=== PATIENT | male | born 1930 | race Caucasian/White ===

== ENCOUNTER 2018-10-02 07:12 | Emergency (ER) | payer OTHER ==
[2018-10-02] MEDS ORDERED: NA CHLORIDE 0.9% 250 ML ONE (07:50)
[2018-10-02] MEDS ORDERED: MECLIZINE HCL 12.5 MG TAB ONE (07:50)
[2018-10-02 08:03] LABS: Absolute Lymphocytes (CBC) 1.3 K/uL (0.7-4.9); Absolute Monocytes 0.5 K/uL (0.1-1.3); Absolute Neutrophil 5.3 K/uL (1.8-8.0); Basophils % 0.7 % (0-1.3); Eosinophils % 1.2 % (0-4.4); Hematocrit 38.6 % (39.6-49.0); Lymphocytes % 17.7 % (15.3-44.8); MCH 32.6 pg (27.0-35.0); MCV 96.3 fL (80-100); MPV 9.5 fL (7.6-11.3); Monocytes % 7.3 % (3.3-12.3); RBC Red Blood Cell Count 4.01 M/uL (4.33-5.43)
[2018-10-02 08:10] LABS: Protime INR 1.27
--- NOTE | 2018-10-02 08:20 | RAD REPORT ---
EXAM DESCRIPTION: CT - Head Brain Wo Cont - 10/02/2018 7:56 am CLINICAL HISTORY: Weakness, dizziness, syncope COMPARISON: None. TECHNIQUE: Axial 5 mm thick images of the head were obtained without IV contrast. All CT scans are performed using dose optimization technique as appropriate and may include automated exposure control or mA/KV adjustment according to patient size. FINDINGS: No intracranial hemorrhage, mass, edema or shift of mid-line structures. No acute infarcti on changes seen. Atrophy and chronic ischemic changes are present. Ventricles are in proportion to vo lume loss. Physiologic and arterial calcifications are present. Mastoid air cells and visualized portions of the paranasal sinuses are clear. No acute bony findings. IMPRESSION: Atrophy and chronic ischemic changes are present with no acute intracranial finding seen .
[2018-10-02 08:29] LABS: Albumin 3.8 g/dL (3.4-5.0); Bilirubin Direct 0.4 mg/dL (0-0.2); Bilirubin Total 1.1 mg/dL (0.2-1.0); Magnesium 2.4 mg/dL (1.8-2.4); Potassium 4.1 mmol/L (3.5-5.1); Protein, Total 7.5 g/dL (6.4-8.2); Troponin (Emerg Dept Use Only) 0.02 ng/mL (0.0-0.045)
--- NOTE | 2018-10-02 08:51 | RAD REPORT ---
EXAM DESCRIPTION: RAD - Chest Single View - 10/02/2018 8:14 am CLINICAL HISTORY: Shortness of breath, dyspnea COMPARISON: November 2017 TECHNIQUE: AP portable chest image was obtained 0759 hours . FINDINGS: Pacemaker is in place. Cardiomegaly is present increased slightly over comparison. Central vasculature is not substantially different from the prior study. Patient has extensive chronic inter stitial lung disease. This is most pronounced in each base. No substantial interval change. Early int erstitial edema or infiltrate could be masked. Sternotomy wires are in place. No pneumothorax or larg e pleural effusion. No acute bony abnormality seen. No acute aortic findings suspected. IMPRESSION: Mild CHF/volume overload pattern. Extensive chronic interstitial lung disease present. This can mask severity of interstitial edema or infiltrate.
[2018-10-02 09:35] LABS: Urine Blood 1+ (NEG); Urine Glucose NEGATIVE (NEG); Urine Protein NEGATIVE (NEG); Urine pH 5.5 (5.0-7.0)
[2018-10-02] MEDS ORDERED: ONDANSETRON 4 MG/2 ML VIAL ONE (09:44)
--- NOTE | 2018-10-02 10:19 | EDPHYS ---
Physician Documentation [facility] Name: Masood Liu Age: 88 yrs Sex: Male : 1930 Arrival Date: 10/02/2018 Time: 07:13 Bed 5 Private MD: out of town, doctor ED Physician Thanh Rodrigues HPI: 10/02 07:39 This 88 yrs old Male presents to ER via Ambulatory with complaints of rn Dizziness, Shortness Of Breath. 07:39 The patient presents with feeling faint, generalized weakness, lightheadedness, feeling rn off balance. Onset: The symptoms/episode began/occurred this morning. Modifying factors: The symptoms are alleviated by nothing, the symptoms are aggravated by changing position. Severity of symptoms: At their worst the symptoms were moderate in the emergency department the symptoms have improved. The patient has not experienced similar symptoms in the past. Reports dizziness, felt like spinning, sick to his stomach, when getting up to use urinal. Happened 3 times this morning, last known normal last night, improved now, worse with change in position. No chest pain/vomiting/diarrhea. Went to bed fine last night. No palpitations. . Historical: - Allergies: 07:24 Aldactone; hj 07:24 Allopurinol; hj 07:24 Keflex; hj 07:24 Lovenox; hj - Home Meds: 07:24 furosemide 20 mg Oral tab 0.5 tab once daily [Active]; gabapentin 300 mg Oral cap 1 cap hj twice a day [Active]; isosorbide mononitrate 30 mg Oral Tb24 1 tab once daily [Active]; nitroglycerin 0.4 mg SL subl 1 tab as needed [Active]; omeprazole 20 mg Oral cpDR 1 cap once daily [Active]; Plavix 75 mg Oral tab 1 tab once daily [Active]; sacubitril-valsartan 24 mg / 26 mg Oral 1 tab 2 times per day [Active]; sotalol 120 mg Oral tab 0.5 tab daily [Active]; terazosin 2 mg Oral cap 1 cap nightly [Active]; - PMHx: 07:24 Atrial Fib; BPH; CAD; CHF; GERD; Hypertension; neuropathy; hj - PSHx: 07:24 pacemaker; Heart Surgery; hj - Immunization history:: Adult Immunizations not up to date. - Social history:: Smoking status: Patient/guardian denies using tobacco, Patient/guardian denies using alcohol. - Ebola Screening: : Patient negative for fever greater than or equal to 101.5 degrees Fahrenheit, and additional compatible Ebola Virus Disease symptoms Patient denies exposure to infectious person Patient denies travel to an Ebola-affected area in the 21 days before illness onset. - Family history:: not pertinent. - Hospitalizations: : No recent hospitalization is reported. ROS: 07:39 Constitutional: Negative for fever, chills, and weight loss, Eyes: Negative for injury, rn pain, redness, and discharge, Neck: Negative for injury, pain, and swelling, Cardiovascular: Negative for chest pain, palpitations, and edema, Respiratory: Negative for wheezing, and pleuritic chest pain, Abdomen/GI: Negative for abdominal pain, nausea, vomiting, diarrhea, and constipation, MS/Extremity: Negative for injury and deformity, Skin: Negative for injury, rash, and discoloration, Neuro: Negative for headache, numbness, tingling, and seizure. Exam: 07:39 Constitutional: This is a well developed, well nourished patient who is awake, alert, rn and in no acute distress. Head/Face: Normocephalic, atraumatic. Eyes: Pupils equal round and reactive to light, extra-ocular motions intact. Neck: Trachea midline. No Meningismus. + mild JVD Cardiovascular: Irregular rhythm, normal rate, no murmur Respiratory: Lungs have equal breath sounds bilaterally, No increased work of breathing, no retractions. + speaking full sentences Abdomen/GI: soft, non-tender MS/ Extremity: Pulses equal, no cyanosis. Neurovascular intact. Full, normal range of motion. Equal circumference. Neuro: Awake and alert, GCS 15, oriented to person, place, time, and situation. Cranial nerves II-XII grossly intact. Motor strength 5/5 in all extremities. Sensory grossly intact. Cerebellar exam normal. Slow gait from wheelchair to bed, required some assistance. Vital Signs: 07:25 BP 108 / 68; Pulse 60; Resp 18; Temp 97.6(TE); Pulse Ox 97% on R/A; Weight 92.99 kg; hj Height 5 ft. 8 in. (172.72 cm); Pain 0/10; 08:03 BP 110 / 68; Pulse 60; Resp 18; Pulse Ox 100% ; bp 08:54 BP 106 / 76; Pulse 60; Resp 18; Pulse Ox 98% on R/A; jb1 10:04 BP 104 / 64; Pulse 60; Resp 18; Temp 97.6; Pulse Ox 96% on R/A; Pain 0/10; ch 07:25 Body Mass Index 31.17 (92.99 kg, 172.72 cm) hj MDM: 07:27 Patient medically screened. rn 10:16 Differential diagnosis: cardiac arrhythmia, CVA, generalized weakness, hypovolemia, rn idiopathic dizziness, near-syncope, TIA, vertigo. Data reviewed: vital signs, nurses notes, lab test result(s), EKG, radiologic studies, CT scan, plain films, and as a result, I will discharge patient. Counseling: I had a detailed discussion with the patient and/or guardian regarding: the historical points, exam findings, and any diagnostic results supporting the discharge/admit diagnosis, lab results, radiology results, the need for outpatient follow up, to return to the emergency department if symptoms worsen or persist or if there are any questions or concerns that arise at home. Response to treatment: the patient's symptoms have markedly improved after treatment, the patient is now symptom free, and as a result, I will discharge patient. Special discussion: I discussed with the patient/guardian in detail that at this point there is no indication for admission to the hospital. It is understood, however, that if the symptoms persist or worsen the patient needs to return immediately for re-evaluation. Based on the history and exam findings, there is no indication for further emergent testing or inpatient evaluation. I discussed with the patient/guardian the need to see the neurologist for further evaluation of the symptoms. ED course: Pt feels much better after meclizine and zofran. Offered observation vs dc home, given most likely diagnosis given intermittent dizziness and nausea would be vertigo. Patient would like to go home. No other acute findings on w/u except for mild dehydration due to diuretics and water restriction. No other focal neurological findings and negative ct head. . ED course: No evidence of pacemaker malfunction.. 10/02 07:39 Order name: Hepatic Function rn 10/02 07:39 Order name: Basic Metabolic Panel; Complete Time: 08:51 rn 10/02 07:39 Order name: CBC with Diff; Complete Time: 08:51 rn 10/02 07:39 Order name: Lipase; Complete Time: 08:51 rn 10/02 07:39 Order name: Magnesium; Complete Time: 08:51 rn 10/02 07:39 Order name: Protime (+inr); Complete Time: 08:51 rn 10/02 07:39 Order name: CT Head Brain wo Cont; Complete Time: 08:51 rn 10/02 07:39 Order name: Ptt, Activated; Complete Time: 08:51 rn 10/02 07:39 Order name: Troponin (emerg Dept Use Only); Complete Time: 08:51 rn 10/02 07:39 Order name: XRAY Chest (1 view); Complete Time: 08:52 rn 10/02 07:39 Order name: Liver (Hepatic) Function; Complete Time: 08:51 EDMS 10/02 09:09 Order name: Urine Dipstick--Ancillary (enter results); Complete Time: 10:20 bd 10/02 07:39 Order name: EKG; Complete Time: 07:40 rn 10/02 07:39 Order name: Cardiac monitoring; Complete Time: 07:40 rn 10/02 07:39 Order name: EKG - Nurse/Tech; Complete Time: 07:46 rn 10/02 07:39 Order name: IV Saline Lock; Complete Time: 07:46 rn 10/02 07:39 Order name: Labs collected and sent; Complete Time: 07:46 rn 10/02 07:39 Order name: O2 Per Protocol; Complete Time: 07:41 rn 10/02 07:39 Order name: O2 Sat Monitoring; Complete Time: 07:41 rn 10/02 07:39 Order name: Urine Dipstick-Ancillary (obtain specimen); Complete Time: 09:03 rn Administered Medications: 07:50 Drug: Meclizine 50 mg Route: PO; bp 08:30 Follow up: Response: Marked relief of symptoms bp 09:00 Follow up: Response: No adverse reaction ch 07:50 Drug: NS 0.9% 250 ml Route: IV; Rate: 1 bolus; Site: right forearm; bp 09:00 Follow up: IV Status: Completed infusion; IV Intake: 250ml ch 09:30 Drug: Zofran 4 mg Route: IVP; Site: right forearm; ch 10:05 Follow up: Response: No adverse reaction; Marked relief of symptoms ch Disposition: 10/02/18 10:18 Discharged to Home. Impression: Vertigo, Dehydration. - Condition is Stable. - Discharge Instructions: Dehydration, Adult, Vertigo. - Prescriptions for Zofran ODT 4 mg Oral tablet,disintegrating - place 1 tablet by TRANSLINGUAL route every 8 hours As needed; 20 tablet. Meclizine 25 mg Oral Tablet - take 1 tablet by ORAL route every 8 hours As needed; 30 tablet. Plavix 75 mg Oral Tablet - take 1 tablet by ORAL route once daily; 7 tablet. - Medication Reconciliation Form, Thank You Letter, Antibiotic Education, Prescription Opioid Use form. - Follow up: Samuel Van MD; When: 2 - 3 days; Reason: Recheck today's complaints, Re-evaluation by your physician. - Problem is new. - Symptoms have improved. Signatures: Dispatcher [employer] EDKristin Martin RN RN Thanh Rodrigues MD MD rn Joaquin, Henry, RN RN Sean Washburn RN RN bp Corrections: (The following items were deleted from the chart) 10:25 10:18 10/02/2018 10:18 Discharged to Home. Impression: Vertigo; Dehydration. Condition ch is Stable. Forms are Medication Reconciliation Form, Thank You Letter, Antibiotic Education, Prescription Opioid Use. Follow up: Samuel Van; When: 2 - 3 days; Reason: Recheck today's complaints, Re-evaluation by your physician. Problem is new. Symptoms have improved. rn
--- NOTE | 2018-10-02 10:19 | ER ---
Nurse's Notes [facility] Name: Masood Liu Age: 88 yrs Sex: Male : 1930 Arrival Date: 10/02/2018 Time: 07:13 Bed 5 Private MD: out of town, doctor Diagnosis: Vertigo;Dehydration Presentation: 10/02 07:20 Presenting complaint: Patient states: i started feeling dizzy today when i got up to hj urinate, if i hadnt had enough support in the wall i coud have fallen, i felt short of breath too; denies fever and chills; reports night sweats and nausea; denies chest pain; on pacemaker;. Transition of care: patient was not received from another setting of care. Onset of symptoms was October 02, 2018. Risk Assessment: Do you want to hurt yourself or someone else? Patient reports no desire to harm self or others. Initial Sepsis Screen: Does the patient meet any 2 criteria? No. Patient's initial sepsis screen is negative. Does the patient have a suspected source of infection? No. Patient's initial sepsis screen is negative. Care prior to arrival: None. 07:20 Method Of Arrival: Ambulatory 07:20 Acuity: SHELLEY 3 hj Triage Assessment: 07:25 General: Appears in no apparent distress. uncomfortable, Behavior is calm, cooperative, hj appropriate for age. Respiratory: Reports shortness of breath Onset: The symptoms/episode began/occurred today, the patient has mild shortness of breath. Historical: - Allergies: 07:24 Aldactone; hj 07:24 Allopurinol; 07:24 Keflex; 07:24 Lovenox; hj - Home Meds: 07:24 furosemide 20 mg Oral tab 0.5 tab once daily [Active]; gabapentin 300 mg Oral cap 1 cap hj twice a day [Active]; isosorbide mononitrate 30 mg Oral Tb24 1 tab once daily [Active]; nitroglycerin 0.4 mg SL subl 1 tab as needed [Active]; omeprazole 20 mg Oral cpDR 1 cap once daily [Active]; Plavix 75 mg Oral tab 1 tab once daily [Active]; sacubitril-valsartan 24 mg / 26 mg Oral 1 tab 2 times per day [Active]; sotalol 120 mg Oral tab 0.5 tab daily [Active]; terazosin 2 mg Oral cap 1 cap nightly [Active]; - PMHx: 07:24 Atrial Fib; BPH; CAD; CHF; GERD; Hypertension; neuropathy; hj - PSHx: 07:24 pacemaker; Heart Surgery; hj - Immunization history:: Adult Immunizations not up to date. - Social history:: Smoking status: Patient/guardian denies using tobacco, Patient/guardian denies using alcohol. - Ebola Screening: : Patient negative for fever greater than or equal to 101.5 degrees Fahrenheit, and additional compatible Ebola Virus Disease symptoms Patient denies exposure to infectious person Patient denies travel to an Ebola-affected area in the 21 days before illness onset. - Family history:: not pertinent. - Hospitalizations: : No recent hospitalization is reported. Screenin:24 Abuse screen: Denies threats or abuse. Denies injuries from another. Nutritional hj screening: No deficits noted. Tuberculosis screening: No symptoms or risk factors identified. Fall Risk Fall in past 12 months (25 points). Assessment: 07:24 Pain: Denies pain. Cardiovascular: Rhythm is. Respiratory: Airway is patent Respiratory hj effort is even, unlabored, Respiratory pattern is regular, symmetrical, 07:52 Reassessment: PT TO CT WITH VENDING MACHINE HOST/HOSTESS. bp 08:03 Reassessment: PT RETURNED FROM CT. bp 09:04 Reassessment: ALL CURRENT ORDERS COMPLETED, DISPO PENDING, NO ACUTE S/S AT THIS TIME. ch 10:04 Reassessment: Patient appears in no apparent distress at this time. Patient and/or ch family updated on plan of care and expected duration. Pain level reassessed. Patient is alert, oriented x 3, equal unlabored respirations, skin warm/dry/pink. pt states he feels much better after the nausea medications. erp notified pt feels better. Patient states feeling better. Patient states symptoms have improved. Vital Signs: 07:25 BP 108 / 68; Pulse 60; Resp 18; Temp 97.6(TE); Pulse Ox 97% on R/A; Weight 92.99 kg; hj Height 5 ft. 8 in. (172.72 cm); Pain 0/10; 08:03 BP 110 / 68; Pulse 60; Resp 18; Pulse Ox 100% ; bp 08:54 BP 106 / 76; Pulse 60; Resp 18; Pulse Ox 98% on R/A; jb1 10:04 BP 104 / 64; Pulse 60; Resp 18; Temp 97.6; Pulse Ox 96% on R/A; Pain 0/10; ch 07:25 Body Mass Index 31.17 (92.99 kg, 172.72 cm) hj ED Course: 07:13 Patient arrived in ED. mr 07:14 out of town, doctor is Private Physician. mr 07:21 Thanh Rodrigues MD is Attending Physician. rn 07:22 Triage completed. hj 07:25 Arm band placed on left wrist. hj 07:25 Patient has correct armband on for positive identification. Placed in gown. Bed in low hj position. Call light in reach. Side rails up X 1. Adult w/ patient. 07:39 Sean Washburn, NORA is Primary Nurse. bp 07:47 N-Terminal Pro-brain Natriuretic Peptide Sent. ch 07:49 EKG done, by information technology analyst. reviewed by Thanh Rodrigues MD. at1 07:50 Inserted saline lock: 20 gauge in right forearm, using aseptic technique. bp 07:54 CT completed. Patient tolerated procedure well. Patient moved to CT via stretcher. Patient moved back from CT. 07:55 CT Head Brain wo Cont In Process Unspecified. EDMS 08:11 XRAY Chest (1 view) In Process Unspecified. EDMS 08:11 X-ray completed. Portable x-ray completed in exam room. jr1 08:59 cafeteria monitor on. Pulse ox on. NIBP on. Warm blanket given. Pillow given. ch 08:59 Urine collected: clean catch specimen, clear. ch 09:03 Hepatic Function Sent. ch 10:18 Samuel Van MD is Referral Physician. rn 10:24 No provider procedures requiring assistance completed. IV discontinued, intact, ch bleeding controlled, No redness/swelling at site. Pressure dressing applied. Administered Medications: 07:50 Drug: Meclizine 50 mg Route: PO; bp 08:30 Follow up: Response: Marked relief of symptoms bp 09:00 Follow up: Response: No adverse reaction ch 07:50 Drug: NS 0.9% 250 ml Route: IV; Rate: 1 bolus; Site: right forearm; bp 09:00 Follow up: IV Status: Completed infusion; IV Intake: 250ml ch 09:30 Drug: Zofran 4 mg Route: IVP; Site: right forearm; 10:05 Follow up: Response: No adverse reaction; Marked relief of symptoms ch Intake: 09:00 IV: 250ml; Total: 250ml. Outcome: 10:18 Discharge ordered by . rn 10:24 Discharged to home via wheelchair, with family. 10:24 Condition: improved 10:24 Discharge instructions given to patient, family, Instructed on discharge instructions, follow up and referral plans. medication usage, Demonstrated understanding of instructions, follow-up care, medications, Prescriptions given X 3. 10:25 Patient left the ED. Signatures: Dispatcher [employer] EDMS Emmanuel Mccoy jb1 Kristin Godfrey, RN RN petra Boggs, Zaria mr Shields, Shanika Mills jr1 Thanh Rodrigues MD MD rn Gonzales, Amanda, trimming inspector EKG Tat1 Christopher Villegas RN RN hj Peltier, Brian RN RN bp Corrections: (The following items were deleted from the chart) 07:27 07:20 Presenting complaint: Patient states: i started feeling dizzy today when i got up hj to urinate, if i hadnt had enough support in the wall i coud have fallen, i felt short of breath too; denies fever and chills; reports night sweats and nausea; 07:27 07:25 Pulse 60bpm; Resp 18bpm; Pulse Ox 97% RA; Temp 97.6F Temporal; 92.99 kg; Height 5 hj ft. 8 in.; BMI: 31.1; Pain 0/10; hj
[2018-10-02 10:38] VITALS: TEMP 97.6
[2018-10-02 10:43] VITALS: BP 104/64; O2SAT 96
--- NOTE | 2018-10-02 12:19 | EKG ---
Test Date: 2018-10-02 Test Time: 07:43:23 [employer]: SORAYA MEASUREMENT RESULTS: Intervals: Rate: 60 UT: 186 QRSD: 174 QT: 614 QTc: 614 [place]: P: 141 UT: 186 QRS: -68 T: 76 INTERPRETIVE STATEMENTS: AV dual-paced rhythm Abnormal ECG Compared to ECG 12/16/2017 13:14:13 No significant changes Electronically Signed On 10-02-18 12:17:51 SHOE FITTER by Dean Ferreira
== END 2018-10-02 10:25 | disposition home or self-care (01) ==
LOC: ER 07:12
DX: R42 Dizziness and giddiness (principal); E86.0 Dehydration; I10 Essential (primary) hypertension; K21.9 Gastro-esophageal reflux disease without esophagitis; I25.10 Atherosclerotic heart disease of native coronary artery without angina pectoris; I50.9 Heart failure, unspecified; I48.91 Unspecified atrial fibrillation; Z88.8 Allergy status to other drugs, medicaments and biological substances; Z88.1 Allergy status to other antibiotic agents
CPT/HCPCS: 36415; 70450; 71045; 80048; 80076; 81003; 83690; 83735; 84484; 85025; 85610; 85730; 93005; 96365; 96375; 99285; J2405

== ENCOUNTER 2018-11-16 07:28 | Inpatient (IN) | payer OTHER ==
[2018-11-16] MEDS ORDERED: ASPIRIN 81 MG CHEWABLE TABLET ONE (07:53)
[2018-11-16] MEDS ORDERED: AMIODARONE HCL 150 MG/3 ML INJ IV ONE (07:55)
[2018-11-16] MEDS ORDERED: AMIODARONE Inj 900 MG/18 mL (=50 MG/ML) VIAL IV ONE (07:55)
[2018-11-16 08:01] LABS: Absolute Lymphocytes (CBC) 1.4 K/uL (0.7-4.9); Absolute Monocytes 1.2 K/uL (0.1-1.3); Basophils % 0.6 % (0-1.3); Hematocrit 42.9 % (39.6-49.0); MPV 10.2 fL (7.6-11.3); Monocytes % 10.9 % (3.3-12.3); RBC Red Blood Cell Count 4.36 M/uL (4.33-5.43)
[2018-11-16 08:02] LABS: Protime INR 1.49
[2018-11-16] MEDS ORDERED: FENTANYL CITR 100 MCG/2 ML ONE (08:05)
[2018-11-16 08:16] LABS: Blood Morphology Comment NOT SEEN (NOT SEEN); Platelet Estimate ADEQ; Platelets, Giant FEW; Urine White Blood Cell Casts OK
[2018-11-16 08:19] LABS: Magnesium 2.7 mg/dL (1.8-2.4); Potassium 3.9 mmol/L (3.5-5.1); Troponin (Emerg Dept Use Only) 0.06 ng/mL (0.0-0.045)
[2018-11-16] MEDS ORDERED: NA CHLORIDE 0.9% 250 ML ONE ×2 (08:21→08:35)
--- NOTE | 2018-11-16 08:48 | EDPHYS ---
Physician Documentation [facility] Name: Masood Liu Age: 88 yrs Sex: Male : 1930 Arrival Date: 11/16/2018 Time: 07:31 Bed 4 Private MD: out of town, doctor ED Physician Thanh Rodrigues HPI: 11/16 07:51 This 88 yrs old Male presents to ER via Wheelchair with complaints of Chest rn Pain. 07:51 The patient or guardian reports chest pain that is located primarily in the substernal rn area. Onset: this morning. The pain does not radiate. Associated signs and symptoms: Pertinent positives: dizziness, lightheadedness, palpitations, shortness of breath, Pertinent negatives: abdominal pain, cough. The chest pain is described as a pressure, squeezing. Duration: The patient or guardian reports a single episode, that is still ongoing. Modifying factors: The symptoms are alleviated by nothing. the symptoms are aggravated by nothing. Severity of pain: At its worst the pain was moderate in the emergency department the pain is unchanged. The patient has experienced similar episodes in the past. Reports chest pain, sob, began this morning, assoc with lightheadedness and near syncope. . Historical: - Allergies: 07:51 Aldactone; hb 07:51 Allopurinol; hb 07:51 Keflex; hb 07:51 Lovenox; hb - Home Meds: 07:51 furosemide 20 mg Oral tab 0.5 tab once daily [Active]; gabapentin 300 mg Oral cap 1 cap hb twice a day [Active]; isosorbide mononitrate 30 mg Oral Tb24 1 tab once daily [Active]; nitroglycerin 0.4 mg SL subl 1 tab as needed [Active]; omeprazole 20 mg Oral cpDR 1 cap once daily [Active]; Plavix 75 mg Oral tab 1 tab once daily [Active]; sacubitril-valsartan 24 mg / 26 mg Oral 1 tab 2 times per day [Active]; sotalol 120 mg Oral tab 0.5 tab daily [Active]; terazosin 2 mg Oral cap 1 cap nightly [Active]; - PMHx: 07:51 Atrial Fib; BPH; CAD; CHF; GERD; Hypertension; neuropathy; hb - PSHx: 07:51 pacemaker; Heart Surgery; hb - Immunization history:: Adult Immunizations up to date. - Social history:: Smoking status: Patient/guardian denies using tobacco. - Ebola Screening: : No symptoms or risks identified at this time. - Family history:: not pertinent. - Hospitalizations: : No recent hospitalization is reported. ROS: 07:51 Constitutional: + chills Eyes: + discharge right eye Cardiovascular: + chest pain, rn palpitations Respiratory: + sob Abdomen/GI: negative for abdominal pain MS/Extremity: Negative for injury and deformity, Skin: Negative for injury, rash, and discoloration, Neuro: Negative for headache, weakness, numbness, tingling, and seizure. Exam: 07:51 Constitutional: This is a well developed, well nourished patient who is awake, alert, rn appears anxious Head/Face: Normocephalic, atraumatic. Eyes: + clear drainage right eye ENT: MMM Cardiovascular: tachycardic, regular, no murmur Respiratory: mild tachypnea, no retractions, speaks 5-6 word sentences Abdomen/GI: soft, non-tender MS/ Extremity: Pulses equal, no cyanosis. Neurovascular intact. Full, normal range of motion. Equal circumference. Neuro: Awake and alert, GCS 15, oriented to person, place, time, and situation. Cranial nerves II-XII grossly intact. Motor strength 5/5 in all extremities. Sensory grossly intact. Vital Signs: 07:33 BP 99 / 77; Pulse 145; Resp 20; Temp 98.2; Pulse Ox 93% on R/A; Pain 8/10; hb 07:41 BP 84 / 72; Pulse 143; hb 07:50 Pulse Ox 90% on R/A; sv 08:00 BP 85 / 63; Pulse 60; Pulse Ox 96% on 2 lpm NC; hb 08:15 BP 81 / 55; Pulse 60; Resp 14; Pulse Ox 95% on 2 lpm NC; hb 08:30 BP 78 / 54; Pulse 60; Resp 17; Pulse Ox 96% on 3 lpm NC; sv 09:00 BP 75 / 51; Pulse 60; Resp 24; Pulse Ox 97% on 3 lpm NC; sv 09:30 BP 76 / 51; Pulse 60; Resp 22; Pulse Ox 97% 3 lpm ; sv 10:14 BP 80 / 59; Pulse 60; Resp 16; Pulse Ox 98% on 3 lpm NC; sv 07:50 Pt placed on O2 \T\ 2L per NC. sv Procedures: 08:09 Cardioversion: (synchronized) using pacer pads, for treatment of V tach, with 150 rn joules X 1. Post procedure rhythm is Paced at 60 bpm, the patient tolerated the procedure well. MDM: 07:32 Patient medically screened. rn 08:10 ED course: Started on amiodarone, patient's BP continued to decrease to 72 systolic, rn lightheaded, chest pain, sob, decision made to cardiovert, after cardioversion chest pain and dyspnea resolved, BP remains low, bolus ordered, on amiodarone drip. . 08:47 Differential diagnosis: acute myocardial infarction, acute pericarditis, coronary rn artery disease pneumothorax, unstable angina, pericardial effusion, VTACH, unstable tachycardic, CHF. The patient was given aspirin in the Emergency Department. Data reviewed: vital signs, nurses notes, lab test result(s), EKG, radiologic studies, plain films, and as a result, I will admit patient. Counseling: I had a detailed discussion with the patient and/or guardian regarding: the historical points, exam findings, and any diagnostic results supporting the discharge/admit diagnosis, lab results, radiology results, the need for further work-up and treatment in the hospital. Response to treatment: the patient's symptoms have markedly improved after treatment. Admission orders: after a detailed discussion of the patient's condition and case, the admit orders are written by me. 11/16 07:41 Order name: Basic Metabolic Panel; Complete Time: 08:20 rn 11/16 07:41 Order name: CBC with Diff; Complete Time: 08:20 rn 11/16 07:41 Order name: Magnesium; Complete Time: 08:20 rn 11/16 07:41 Order name: NT PRO-BNP; Complete Time: 08:20 rn 11/16 07:41 Order name: PT-INR; Complete Time: 08:20 rn 11/16 07:41 Order name: Troponin (emerg Dept Use Only); Complete Time: 08:20 rn 11/16 07:41 Order name: XRAY Chest (1 view); Complete Time: 09:56 rn 11/16 08:04 Order name: CBC Smear Scan; Complete Time: 08:20 EDMS 11/16 07:41 Order name: EKG; Complete Time: 07:42 rn 11/16 07:41 Order name: Cardiac monitoring; Complete Time: 08:23 rn 11/16 07:41 Order name: EKG - Nurse/Tech; Complete Time: 08:24 rn 11/16 07:41 Order name: IV Saline Lock; Complete Time: 08:24 rn 11/16 07:41 Order name: Labs collected and sent; Complete Time: 08:24 rn 11/16 07:41 Order name: O2 Per Protocol; Complete Time: 08:24 rn 11/16 07:41 Order name: O2 Sat Monitoring; Complete Time: 08:24 rn 11/16 08:27 Order name: EKG; Complete Time: 08:29 sv 11/16 08:27 Order name: EKG - Nurse/Tech; Complete Time: 08:27 sv Administered Medications: Discontinued: amiodarone 900 mg, D5W 500 ml IVPB at 1 mg/min continuous; for 6 hrs, then change to 0.5 mg/min 07:52 Drug: Aspirin Chewable Tablet 324 mg Route: PO; sv 08:23 Follow up: Response: No adverse reaction sv 07:52 Drug: amiodarone 150 mg Volume: 100 ml; Route: IVPB; Infused Over: 10 mins; Site: right sv antecubital; 08:00 Follow up: Response: No adverse reaction; IV Status: Completed infusion sv 07:55 Drug: amiodarone 900 mg, D5W 500 ml Route: IVPB; Rate: 1 mg/min; Site: right sv antecubital; 08:28 Follow up: Response: No adverse reaction; Amiodarone drip stopped per Dr Rodrigues. sv 07:57 Drug: fentaNYL (PF) 25 mcg Route: IVP; Site: left antecubital; sv 08:29 Follow up: Response: No adverse reaction sv 07:59 Drug: fentaNYL (PF) 25 mcg Route: IVP; Site: left antecubital; sv 08:29 Follow up: Response: No adverse reaction sv 08:01 Drug: fentaNYL (PF) 25 mcg Route: IVP; Site: left antecubital; sv 08:29 Follow up: Response: No adverse reaction sv 08:18 Drug: NS 0.9% 250 ml Route: IV; Rate: bolus; Site: right antecubital; sv 08:28 Follow up: Response: No adverse reaction; IV Status: Completed infusion; IV Intake: sv 250ml 08:18 CANCELLED (Duplicate Order): NS 0.9% 250 ml IV at bolus once sv 08:28 Drug: NS 0.9% 250 ml Route: IV; Rate: 1 bolus; Site: right antecubital; sv 08:50 Follow up: Response: No adverse reaction; IV Status: Completed infusion; IV Intake: sv 250ml Disposition: 08:47 Critical Care:. rn Disposition: 11/16/18 08:48 Hospitalization ordered by Justino Beckford for Inpatient Admission. Preliminary diagnosis are Ventricular tachycardia, Hypotension, Chest pain, unspecified, Unspecified combined systolic (congestive) and diastolic (congestive) heart failure. - Bed requested for Intensive Care Unit. - Status is Inpatient Admission. sv - Condition is Fair. - Problem is new. - Symptoms have improved. UTI on Admission? No Critical care time excluding procedures: 08:47 Critical care time: Bedside Care: 25 minutes, Consultation: 5 minutes, Family rn Intervention: 5 minutes. Total time: 35 minutes Signatures: Dispatcher [employer] Yamilex Mcmillan RN RN sv Woody, Diana, RN RN dw Nieto, Roman, MD MD rn Baxter, Heather, RN RN Corrections: (The following items were deleted from the chart) 08:18 08:18 NS 0.9% 250 ml IV at bolus once ordered. sv sv 10:02 08:48 Hospitalization Ordered by Justino Beckford MD for Inpatient Admission. Preliminary dw diagnosis is Ventricular tachycardia; Hypotension; Chest pain, unspecified; Unspecified combined systolic (congestive) and diastolic (congestive) heart failure. Bed requested for Intensive Care Unit. Status is Inpatient Admission. Condition is Fair. Problem is new. Symptoms have improved. UTI on Admission? No. rn 10:43 10:02 11/16/2018 08:48 Hospitalization Ordered by Justino Beckford MD for Inpatient sv Admission. Preliminary diagnosis is Ventricular tachycardia; Hypotension; Chest pain, unspecified; Unspecified combined systolic (congestive) and diastolic (congestive) heart failure. Bed requested for Intensive Care Unit. Status is Inpatient Admission. Condition is Fair. Problem is new. Symptoms have improved. UTI on Admission? No. dw
--- NOTE | 2018-11-16 08:48 | ER ---
Nurse's Notes [facility] Name: Masood Liu Age: 88 yrs Sex: Male : 1930 Arrival Date: 11/16/2018 Time: 07:31 Bed 4 Private MD: out of town, doctor Diagnosis: Ventricular tachycardia;Hypotension;Chest pain, unspecified;Unspecified combined systolic (congestive) and diastolic (congestive) heart failure Presentation: 11/16 07:34 Presenting complaint: SOB and chest pain upon waking today. Pain was unrelieved by hb nitro x 5. Transition of care: patient was not received from another setting of care. Onset of symptoms was November 16, 2018. Risk Assessment: Do you want to hurt yourself or someone else? Patient reports no desire to harm self or others. Initial Sepsis Screen: Does the patient meet any 2 criteria? No. Patient's initial sepsis screen is negative. Does the patient have a suspected source of infection? No. Patient's initial sepsis screen is negative. Care prior to arrival: nitro x 5. 07:34 Method Of Arrival: Wheelchair hb 07:34 Acuity: SHELLEY 2 hb Historical: - Allergies: 07:51 Aldactone; hb 07:51 Allopurinol; hb 07:51 Keflex; hb 07:51 Lovenox; hb - Home Meds: 07:51 furosemide 20 mg Oral tab 0.5 tab once daily [Active]; gabapentin 300 mg Oral cap 1 cap hb twice a day [Active]; isosorbide mononitrate 30 mg Oral Tb24 1 tab once daily [Active]; nitroglycerin 0.4 mg SL subl 1 tab as needed [Active]; omeprazole 20 mg Oral cpDR 1 cap once daily [Active]; Plavix 75 mg Oral tab 1 tab once daily [Active]; sacubitril-valsartan 24 mg / 26 mg Oral 1 tab 2 times per day [Active]; sotalol 120 mg Oral tab 0.5 tab daily [Active]; terazosin 2 mg Oral cap 1 cap nightly [Active]; - PMHx: 07:51 Atrial Fib; BPH; CAD; CHF; GERD; Hypertension; neuropathy; hb - PSHx: 07:51 pacemaker; Heart Surgery; hb - Immunization history:: Adult Immunizations up to date. - Social history:: Smoking status: Patient/guardian denies using tobacco. - Ebola Screening: : No symptoms or risks identified at this time. - Family history:: not pertinent. - Hospitalizations: : No recent hospitalization is reported. Screenin:28 Abuse screen: Denies threats or abuse. Denies injuries from another. Nutritional sv screening: No deficits noted. Tuberculosis screening: No symptoms or risk factors identified. Fall Risk None identified. Assessment: 07:50 Also complains of shortness of breath. General: Appears distressed, uncomfortable, sv Behavior is calm, cooperative, appropriate for age. Pain: Complains of pain in chest Pain does not radiate. Pain currently is 8 out of 10 on a pain scale. Neuro: Level of Consciousness is awake, alert, obeys commands, Oriented to person, place, time, situation, Moves all extremities. Full function. Cardiovascular: Patient's skin is warm and dry. Rhythm is ventricular tachycardia. Respiratory: Airway is patent Respiratory effort is even, labored, Respiratory pattern is symmetrical, tachypnea. 08:08 Reassessment: Patient appears in no apparent distress at this time. Patient and/or sv family updated on plan of care and expected duration. Pain level reassessed. Patient is alert, oriented x 3, equal unlabored respirations, skin warm/dry/pink. Patient states symptoms have improved. Cardiovascular: Denies chest pain. Respiratory: Denies shortness of breath. 08:18 Reassessment: Pt's family reports that his BP is normally in the 80-90s. sv 09:31 Reassessment: Patient appears in no apparent distress at this time. Patient and/or sv family updated on plan of care and expected duration. Pain level reassessed. Patient is alert, oriented x 3, equal unlabored respirations, skin warm/dry/pink. Patient states symptoms have improved. Respiratory: Denies shortness of breath. 10:16 Reassessment: Patient appears in no apparent distress at this time. Patient and/or sv family updated on plan of care and expected duration. Pain level reassessed. Patient is alert, oriented x 3, equal unlabored respirations, skin warm/dry/pink. Patient denies pain at this time. Patient states symptoms have improved. Vital Signs: 07:33 BP 99 / 77; Pulse 145; Resp 20; Temp 98.2; Pulse Ox 93% on R/A; Pain 8/10; hb 07:41 BP 84 / 72; Pulse 143; hb 07:50 Pulse Ox 90% on R/A; sv 08:00 BP 85 / 63; Pulse 60; Pulse Ox 96% on 2 lpm NC; hb 08:15 BP 81 / 55; Pulse 60; Resp 14; Pulse Ox 95% on 2 lpm NC; hb 08:30 BP 78 / 54; Pulse 60; Resp 17; Pulse Ox 96% on 3 lpm NC; sv 09:00 BP 75 / 51; Pulse 60; Resp 24; Pulse Ox 97% on 3 lpm NC; sv 09:30 BP 76 / 51; Pulse 60; Resp 22; Pulse Ox 97% 3 lpm ; sv 10:14 BP 80 / 59; Pulse 60; Resp 16; Pulse Ox 98% on 3 lpm NC; sv 07:50 Pt placed on O2 \T\ 2L per NC. sv ED Course: 07:31 Patient arrived in ED. mr 07:31 out of town, doctor is Private Physician. mr 07:32 Thanh Rodrigues MD is Attending Physician. rn 07:43 Yamilex Kamara RN is Primary Nurse. sv 07:45 Initial lab(s) drawn, by ED staff, sent to lab. Inserted saline lock: 18 gauge in right sv antecubital area, using aseptic technique. ,using aseptic technique. done by Fatuma Hein RN Blood collected. 07:49 Triage completed. hb 07:50 Oxygen administration via nasal cannula \T\ 2L/min Response to oxygen therapy: symptoms sv improved. 07:52 Arm band placed on. hb 07:52 Patient has correct armband on for positive identification. Placed in gown. Bed in low sv position. Side rails up X2. credit verification clerk on. Pulse ox on. NIBP on. Door closed. Head of bed elevated. 07:55 Inserted saline lock: 22 gauge in left antecubital area, using aseptic technique. sv ,using aseptic technique. done by Emmanuel MILLS tech. 08:04 Assist provider with cardioversion (synchronized) with pads, for treatment of V tach sv with 150 joules X 1. Set up for procedure. Performed by Thanh Rodrigues MD Monitored with treasury analyst, pulse ox, Post procedure rhythm is paced 60. Patient tolerated well. 08:14 EKG done, by missile and missile checkout technician. reviewed by Thanh Rodrigues MD. dt2 08:19 XRAY Chest (1 view) In Process Unspecified. EDMS 08:47 Justino Beckford MD is Hospitalizing Provider. rn 09:16 CT completed. Patient tolerated procedure well. Patient moved to CT via stretcher. Patient moved back from CT. 10:15 Patient admitted, IV remains in place. intact. sv Administered Medications: Discontinued: amiodarone 900 mg, D5W 500 ml IVPB at 1 mg/min continuous; for 6 hrs, then change to 0.5 mg/min 07:52 Drug: Aspirin Chewable Tablet 324 mg Route: PO; sv 08:23 Follow up: Response: No adverse reaction sv 07:52 Drug: amiodarone 150 mg Volume: 100 ml; Route: IVPB; Infused Over: 10 mins; Site: right sv antecubital; 08:00 Follow up: Response: No adverse reaction; IV Status: Completed infusion sv 07:55 Drug: amiodarone 900 mg, D5W 500 ml Route: IVPB; Rate: 1 mg/min; Site: right sv antecubital; 08:28 Follow up: Response: No adverse reaction; Amiodarone drip stopped per Dr Rodrigues. sv 07:57 Drug: fentaNYL (PF) 25 mcg Route: IVP; Site: left antecubital; sv 08:29 Follow up: Response: No adverse reaction sv 07:59 Drug: fentaNYL (PF) 25 mcg Route: IVP; Site: left antecubital; sv 08:29 Follow up: Response: No adverse reaction sv 08:01 Drug: fentaNYL (PF) 25 mcg Route: IVP; Site: left antecubital; sv 08:29 Follow up: Response: No adverse reaction sv 08:18 Drug: NS 0.9% 250 ml Route: IV; Rate: bolus; Site: right antecubital; sv 08:28 Follow up: Response: No adverse reaction; IV Status: Completed infusion; IV Intake: sv 250ml 08:18 CANCELLED (Duplicate Order): NS 0.9% 250 ml IV at bolus once sv 08:28 Drug: NS 0.9% 250 ml Route: IV; Rate: 1 bolus; Site: right antecubital; sv 08:50 Follow up: Response: No adverse reaction; IV Status: Completed infusion; IV Intake: sv 250ml Intake: 08:28 IV: 250ml; Total: 250ml. sv 08:50 IV: 250ml; Total: 500ml. sv Outcome: 08:48 Decision to Hospitalize by Provider. rn 10:15 Admitted to ICU accompanied by nurse, accompanied by tech, family with patient, via sv stretcher, room 3, with oxygen, on monitor, with chart, Report called to Emmie MELENDEZ 10:15 Condition: stable 10:15 Instructed on the need for admit. 10:43 Patient left the ED. sv Signatures: Dispatcher [employer] Yamilex Mcmillan RN RN sv Rivera, Zaria Ramesh, Thanh Chandra MD MD rn Baxter, Heather, RN RN hb Teague, Danielle dt2 Corrections: (The following items were deleted from the chart) 09:28 08:04 Assist provider with cardioversion (synchronized) with pads, for treatment of V sv tach with 150 joules X 1. Set up for procedure. Performed by Thanh Rodrigues MD Monitored with treasury analyst, pulse ox, Patient tolerated well. sv
--- NOTE | 2018-11-16 09:49 | RAD REPORT ---
EXAM DESCRIPTION: Godwin Single View11/16/2018 8:19 am CLINICAL HISTORY: Chest pain COMPARISON: September 2018 FINDINGS: Mild bilateral pulmonary opacities. The heart is moderately enlarged. Postsurgical changes involve the chest. IMPRESSION: These findings probably represent mild CHF
[2018-11-16] MEDS: AMIODARONE HCL 200 MG TAB PO SCH ×2 (13:02→20:03)
[2018-11-16 13:04] LABS: T3 Free 1.02 pg/mL (2.18-3.98); Thyroid Stimulating Hormone 1.04 uIU/mL (0.360-3.740)
[2018-11-16] MEDS ORDERED: ONDANSETRON 4 MG (ODT) TAB PO PRN (17:15)
[2018-11-16] MEDS ORDERED: ONDANSETRON 4 MG/2 ML VIAL IV PRN (17:24)
[2018-11-16] MEDS: ACETAMINOPHEN 325 MG TABLET PO PRN (17:27)
[2018-11-16] MEDS: FUROSEMIDE 40 MG TABLET PO SCH (17:27)
--- NOTE | 2018-11-16 17:27 | P.HP ---
Certification for Inpatient Patient admitted to: Inpatient With expected LOS: >2 Midnights Practitioner: I am a practitioner with admitting privileges, knowledge of patient current condition, hospital course, and medical plan of care. Services: Services provided to patient in accordance with Admission requirements found in Title 42 Section 412.3 of the Code of Federal Regulations Patient History Date of Service: 11/16/18 Reason for admission: Chest pain History of Present Illness: This is an 80-year-old male with history of CAD with pacemaker with defibrillator that was admitted for chest pain. Per patient this morning, he had this sharp chest pain associated with shortness of breath and palpitations that that made him feel really weak. Tele son, who called the ambulance and patient was brought to the hospital. He was found to be in V-tach with a rate of 150. In the ER, amiodarone was tried which did not help convert. That he was cardioverted with 250 joules times with which helped resolve his symptoms. [place] [address] and troponin of 0.6. After the cardioversion, his symptoms resolved though he was still hypotensive. Amiodarone was discontinued and the patient was admitted to the hospital for further evaluation. At the time of my exam, patient was alert oriented x3, in no acute distress. He was lying comfortably in bed. Blood pressure was on the lower end, though he was asymptomatic. Allergies allopurinol Allergy (Mild, Verified 11/16/18 10:56) Itching/Hives/Rash cephalexin monohydrate [From Keflex] Allergy (Mild, Verified 11/16/18 10:56) Itching/Hives/Rash enoxaparin sodium [From Lovenox] Allergy (Mild, Verified 11/16/18 10:56) Hives/Rash spironolactone [From Aldactone] Allergy (Unknown, Verified 11/16/18 10:56) Unknown Home Medications: Clopidogrel Bisulfate [Plavix*] 75 mg PO DAILY 11/26/15 Gabapentin [Neurontin] 300 mg PO BID 11/26/15 Nitroglycerin 0.4 mg PO SEECOM PRN 11/26/15 Sacubitril/Valsartan [Entresto 24 mg-26 mg Tablet] 1 tab PO BID #60 tab Isosorbide Mononitrate [Isosorbide Mononitrate ER] 1 tab PO DAILY 01/03/17 Amiodarone HCl 100 mg PO DAILY 12/16/17 Aspirin [Aspir-Low] 81 mg PO DAILY 12/16/17 Atorvastatin Calcium [Lipitor] 40 mg PO BEDTIME 12/16/17 Furosemide [Lasix] 40 mg PO BIDL #60 tab 12/18/17 Mag Hydroxide 8% [Milk Of Magnesia] 30 ml PO DAILY PRN 11/16/18 - Past Medical/Surgical History Has patient received pneumonia vaccine in the past: No Diabetic: No -: pacemaker/defilbrillator -: htn -: chf -: gerd -: OR -: gullian barre 60's -: tb before the 60's -: hypotension -: hyperlipidemia -: cardioversion afib 2 years ago -: cad -: bph -: pacemaker -: cabg -: heart stents x1 -: appendectomy -: wedge resection on left lung - Family History Father -: Heart disease Notes: heart attack Mother -: Stroke Brother -: Cancer Sister -: Cancer - Social History Smoking Status: Former smoker Alcohol use: No CD- Drugs: No Caffeine use: No Place of Residence: Home Review of Systems General: Weakness Eyes: Unremarkable ENT: Unremarkable Respiratory: Shortness of Breath, As per HPI Cardiovascular: Chest Pain, Palpitations, As per HPI Gastrointestinal: Unremarkable Genitourinary: Unremarkable Musculoskeletal: Unremarkable Integumentary: Unremarkable Neurological: Unremarkable Lymphatics: Unremarkable Physical Examination - Vital Signs Temperature: 98.2 F Blood Pressure: 106/69 Pulse: 75 Respirations: 30 Pulse Ox (%): 96 - Physical Exam General: Alert, In no apparent distress, Oriented x3 HEENT: Atraumatic, PERRLA, Mucous membr. moist/pink, EOMI, Sclerae nonicteric Neck: Supple, 2+ carotid pulse no bruit, No LAD, Without JVD or thyroid abnormality Respiratory: Clear to auscultation bilaterally, Normal air movement Cardiovascular: Regular rate/rhythm, Normal S1 S2 Gastrointestinal: Normal bowel sounds, No tenderness Musculoskeletal: No tenderness Integumentary: No rashes Neurological: Normal gait, Normal speech, Normal strength at 5/5 x4 extr, Normal tone, Normal affect Lymphatics: No axilla or inguinal lymphadenopathy - Studies Laboratory Data (last 24 hrs) 12/21/18 07:45: PT 17.7 H, INR 1.49 11/16/18 07:45: WBC 10.6, Hgb 14.0, Hct 42.9, Plt Count 155 11/16/18 07:45: Sodium 138, Potassium 3.9, BUN 19 H, Creatinine 1.70 H, Glucose 159 H, Magnesium 2.7 H Assessment and Plan - Plan This is an 80-year-old male with: Ventricular tachycardia, status post cardioversion History of pacemaker Coronary artery disease with CABG Essential Hypertension Hyperlipidemia Guillain-[place] syndrome Elevated creatinine, likely secondary to ventricular tachycardia and cardioversion Admit to ICU, monitor overnight. Cardiology consulted. Restart amiodarone, as this is patient's home medications. Restart other home medications. Pacemaker interrogation Echo ordered, pending DVT prophylaxis: Aspirin and Plavix GI prophylaxis: Not needed Diet: Heart healthy Disposition: Admit to ICU, monitor overnight. - Advance Directives Does patient have a Living Will: No Does patient have a Durable POA for Healthcare: No Physician Review: Patient Assessed, Agree with Above Assessment and Plan Critical Care: Yes
--- NOTE | 2018-11-16 18:07 | EKG ---
Test Date: 2018-11-16 Test Time: 07:43:21 Decision Support Manager: KENDRICK MEASUREMENT RESULTS: Intervals: Rate: 143 [place]: QRSD: 172 QT: 374 QTc: 577 [place]: P: CO: QRS: 111 T: -80 INTERPRETIVE STATEMENTS: vt Right bundle branch block T wave abnormality, consider inferolateral ischemia Abnormal ECG Compared to ECG 10/02/2018 07:43:23 Wide-QRS tachycardia now present Right bundle-branch block now present T-wave abnormality now present Possible ischemia now present Ventricular-paced complex(es) or rhythm no longer present AV dual-paced complex(es) or rhythm no longer present Electronically Signed On 11-16-18 18:05:20 APPELLATE LAW CLERK by Dean Ferreira
--- NOTE | 2018-11-16 18:07 | EKG ---
Test Date: 2018-11-16 Test Time: 08:22:12 Primary Teacher: DRE MEASUREMENT RESULTS: Intervals: Rate: 60 NC: QRSD: 174 QT: 662 QTc: 662 [place]: P: NC: QRS: -74 T: 105 INTERPRETIVE STATEMENTS: Ventricular-paced rhythm Abnormal ECG Compared to ECG 11/16/2018 07:43:21 Wide-QRS tachycardia no longer present Right bundle-branch block no longer present T-wave abnormality no longer present Possible ischemia no longer present Electronically Signed On 11-16-18 18:05:02 EDITOR [employer]ARM [employer]RNAL by Dean Ferreira
[2018-11-16] MEDS: GABAPENTIN 300 MG CAP PO SCH (20:02)
[2018-11-16] MEDS: ATORVASTATIN 40 MG TAB PO SCH (20:03)
--- NOTE | 2018-11-17 00:23 | CON ---
Date of Consultation: 11/16/2018 The patient is 88. He was admitted to Dr. Beckford's service because of ventricular tachycardia and yani st pain and AICD shocks. He was admitted on 11/16/2018 to the ICU. The patient was seen on 11/16/20 18. History Of Present Illness: Mr. Liu is 88. He has a history of chronic ischemic cardiomyopat hy with an ejection fraction of 30% as of November of 2017. He has had a history of biventricular pac emaker, AICD. Last catheterization in 2014 showed a patent VASQUEZ to the LAD, patent saphenous vein gr aft to the circumflex, a 100% occlusion of his RCA graft, diffuse disease throughout the RCA rosebud. He has a history of CABG, hypertension, neuropathy and benign prostatic hypertrophy. He came in wit h chest pain, was noted on AICD interrogation to have had a ventricular tachycardia episode that was terminated. The rate was decreased from 170 to 155 as far as detecting ventricular tachycardia on th e defibrillator. Amiodarone was increased. The patient was hemodynamically stable in the ICU and de nied any nausea or vomiting or sweating. He denied PND, orthopnea, or pedal edema. He denied anythi ng, any fever or chills. Had palpitation and syncope prior to arrival. Allergies: ALDACTONE, LOVENOX, CEPHALEXIN AND ALLOPURINOL. Review of Systems: Negative. Social History: Negative. Family History: Noncontributory. Medications: At home include amiodarone 100 mg daily, Neurontin, Imdur, Entresto, magnesium, aspirin , Lipitor, Plavix, and Lasix. Physical Examination: General: Mr. Liu appeared his age. He was in a paced rhythm, afebrile. Alert and oriented x 3. HEENT: Exam was negative. Neck: Supple without any bruit, lymphadenopathy, JVD, or thyromegaly. Chest: Clear to auscultation and percussion. Cardiac: Exam revealed a regular rhythm and rate with S3 gallops. No murmurs or rubs. Abdomen: Obese, but benign. Extremities: Revealed trace edema. Laboratory Data: His creatinine is 1.7, troponin is 1.78, glucose of 159. BNP was 63069. EKG showe d paced rhythm. Chest x-ray was negative. Impression And Plan: 1.Ventricular tachycardia, terminated by defibrillator. Adjustments have been made from 170 to 150 for heart rate detection on the defibrillator by the defibrillator printing supplies sales representative. We will increase his amiodarone temporarily to 200 twice a day. We will come back on the dose because apparently he d id not tolerate a higher dose in the past. The case was discussed with EP. An echocardiogram is pen cece. 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 Ejection fraction is 30%. Echocardiogram is pending. The patient is on appropriate therapy with Entresto and Lasix a nd amiodarone. He is not on a beta-nicole probably because of the amiodarone. Certainly adding Cor eg may be an option. 3.Neuropathy. 4.Gout. 5.Dyslipidemia on Lipitor. 6.Benign prostatic hypertrophy. 7.Hypertension, well controlled. 8.Renal insufficiency stage II. 9.Elevated troponin and BNP secondary to chronic congestive heart failure. We will continue to watc h Mr. Liu overnight, hopefully send him home tomorrow on a higher dose of amiodarone and we wi ll see him in the office in the next week or two. KAROLINA/SOFIA Voice ID: [id number] Report ID: [id number]
[2018-11-17] MEDS: ONDANSETRON 4 MG/2 ML VIAL IV PRN ×2 (03:12→11:07)
[2018-11-17] MEDS: ACETAMINOPHEN 325 MG TABLET PO PRN ×2 (03:20→17:17)
[2018-11-17 05:19] LABS: Absolute Lymphocytes (CBC) 0.6 K/uL (0.7-4.9); Absolute Monocytes 0.6 K/uL (0.1-1.3); Absolute Neutrophil 9.5 K/uL (1.8-8.0); Basophils % 0.5 % (0-1.3); Hematocrit 39.3 % (39.6-49.0); Lymphocytes % 5.2 % (15.3-44.8); MPV 10.6 fL (7.6-11.3); Monocytes % 5.8 % (3.3-12.3); RBC Red Blood Cell Count 4.06 M/uL (4.33-5.43)
[2018-11-17 05:45] LABS: Albumin 3.1 g/dL (3.4-5.0); Bilirubin Total 3.2 mg/dL (0.2-1.0); Magnesium 2.6 mg/dL (1.8-2.4); Phosphorus 3.7 mg/dL (2.5-4.9); Potassium 4.2 mmol/L (3.5-5.1); Protein, Total 6.2 g/dL (6.4-8.2)
[2018-11-17] MEDS: FUROSEMIDE 40 MG TABLET PO SCH ×2 (08:42→17:17)
[2018-11-17] MEDS: CLOPIDOGREL 75 MG TABLET PO SCH (08:42)
[2018-11-17] MEDS: ASPIRIN EC 81 MG TAB PO SCH (08:42)
[2018-11-17] MEDS: GABAPENTIN 300 MG CAP PO SCH ×2 (08:42→21:29)
[2018-11-17] MEDS: AMIODARONE HCL 200 MG TAB PO SCH (08:42)
[2018-11-17] MEDS ORDERED: LORazepam 2 MG/ML VIAL IV ONE (11:52)
--- NOTE | 2018-11-17 19:16 | P.PN ---
Subjective Date of Service: 11/17/18 Chief Complaint: Chest pain Subjective: No new changes, Improving Patient seen and examined at bedside. No family at bedside. Chart reviewed and case discussed with nursing staff. Patient complaining of excessive shaking and chills, this has progressively worsened are now more violent. States is heart rate jumps up and he has the shakes. Review of Systems 10-point ROS is otherwise unremarkable Physical Examination - Vital Signs Temperature: 100.0 F Blood Pressure: 95/46 Pulse: 60 Respirations: 25 Pulse Ox (%): 96 - Physical Exam General: Alert, In no apparent distress HEENT: Atraumatic, PERRLA, EOMI Neck: Supple, JVD not distended Respiratory: Clear to auscultation bilaterally, Normal air movement Cardiovascular: Regular rate/rhythm, Normal S1 S2 Gastrointestinal: Normal bowel sounds, No tenderness Musculoskeletal: No tenderness Integumentary: No rashes Neurological: Normal speech, Normal tone, Normal affect Lymphatics: No axilla or inguinal lymphadenopathy Assessment And Plan - Plan This is an 80-year-old male with: Ventricular tachycardia, status post cardioversion History of pacemaker Coronary artery disease with CABG Essential Hypertension Hyperlipidemia Guillain-[place] syndrome Elevated creatinine, likely secondary to ventricular tachycardia and cardioversion Continue to monitor in ICU. Pacemaker/defibrillator setting threshold decreased to 155. Cardiology consulted. Recommendations appreciated Decrease amiodarone to patient's home dose of 100 mg daily. Echo ordered, pending DVT prophylaxis: Aspirin and Plavix GI prophylaxis: Not needed Diet: Heart healthy Disposition: Continue to monitor in ICU. If stable overnight, can transfer to floor versus discharge home. Physician Review: Patient Assessed, Agree with Above Assessment and Plan
[2018-11-17] MEDS ORDERED: AMIODARONE HCL 200 MG TAB PO SCH (21:00)
[2018-11-17] MEDS: ATORVASTATIN 40 MG TAB PO SCH (21:29)
[2018-11-18 05:42] LABS: Absolute Lymphocytes (CBC) 0.6 K/uL (0.7-4.9); Absolute Monocytes 1.2 K/uL (0.1-1.3); Absolute Neutrophil 16.6 K/uL (1.8-8.0); Basophils % 0.1 % (0-1.3); Hematocrit 43.9 % (39.6-49.0); MPV 10.5 fL (7.6-11.3); Monocytes % 6.7 % (3.3-12.3); RBC Red Blood Cell Count 4.57 M/uL (4.33-5.43)
[2018-11-18 06:19] LABS: Albumin 2.8 g/dL (3.4-5.0); Bilirubin Total 2.7 mg/dL (0.2-1.0); Magnesium 2.6 mg/dL (1.8-2.4); Phosphorus 2.9 mg/dL (2.5-4.9); Potassium 4.4 mmol/L (3.5-5.1); Protein, Total 6.2 g/dL (6.4-8.2)
[2018-11-18] MEDS: ASPIRIN EC 81 MG TAB PO SCH (08:27)
[2018-11-18] MEDS: FUROSEMIDE 40 MG TABLET PO SCH ×2 (08:27→16:29)
[2018-11-18] MEDS: CLOPIDOGREL 75 MG TABLET PO SCH (08:27)
[2018-11-18] MEDS: AMIODARONE HCL 200 MG TAB PO SCH (08:27)
[2018-11-18] MEDS: GABAPENTIN 300 MG CAP PO SCH ×2 (08:27→19:58)
--- NOTE | 2018-11-18 12:25 | P.PN ---
Subjective Date of Service: 11/18/18 Chief Complaint: Chest pain Subjective: No new changes, No C/O voiced, Improving Patient seen and examined at bedside. No family at bedside. Chart reviewed and case discussed with nursing staff. No events noted on the tele monitor overnight Review of Systems 10-point ROS is otherwise unremarkable Physical Examination - Vital Signs Temperature: 99.7 F Blood Pressure: 97/50 Pulse: 60 Respirations: 34 Pulse Ox (%): 97 - Physical Exam General: Alert, In no apparent distress, Oriented x3 HEENT: Atraumatic, PERRLA, EOMI Neck: Supple, JVD not distended Respiratory: Clear to auscultation bilaterally, Normal air movement Cardiovascular: Regular rate/rhythm, Normal S1 S2 Gastrointestinal: Normal bowel sounds, No tenderness Musculoskeletal: No tenderness Integumentary: No rashes Neurological: Normal speech, Normal tone, Normal affect Lymphatics: No axilla or inguinal lymphadenopathy Assessment And Plan - Plan This is an 80-year-old male with: Ventricular tachycardia, status post cardioversion History of pacemaker Coronary artery disease with CABG Essential Hypertension Hyperlipidemia Guillain-[place] syndrome Elevated creatinine, likely secondary to ventricular tachycardia and cardioversion Leukocytosis, unsure of etiology of infection. Remains afebrile Continue to monitor in ICU. Pacemaker/defibrillator setting threshold decreased to 155. Cardiology consulted. Recommendations appreciated Troponin trending down Decrease amiodarone to patient's home dose of 100 mg daily. Echo ordered, pending reading Pending lactic acid propranolol, chest x-ray and urine studies. DVT prophylaxis: Aspirin and Plavix GI prophylaxis: Not needed Diet: Heart healthy Disposition: Transferred to the floor. If stable overnight, can transfer to floor versus discharge home. Physician Review: Patient Assessed, Agree with Above Assessment and Plan
[2018-11-18] MEDS: DOCUSATE NA 100 MG CAP PO SCH ×2 (13:05→19:59)
[2018-11-18] MEDS: SACUBITRIL/VALSARTAN 24/26 MG TAB PO SCH ×2 (13:05→20:00)
--- NOTE | 2018-11-18 13:53 | RAD REPORT ---
EXAM DESCRIPTION: RAD - Chest Pa And Lat (2 Views) - 11/18/2018 1:44 pm CLINICAL HISTORY: cp Chest pain. COMPARISON: Chest Single View dated 11/16/2018; Chest Single View dated 10/02/2018; Chest Pa And Lat (2 Views) dated 12/18/2017; Chest Single View dated 12/16/2017 FINDINGS: Advanced emphysematous changes are seen with poorly defined in opacity in the left base po steriorly likely representing pneumonia/aspiration. The heart is mildly enlarged with a multi lead pa cer device present. IMPRESSION: COPD with moderate left basilar pneumonia present.
[2018-11-18] MEDS: NA CHLORIDE 0.9% 1,000 ML IV SCH (14:22)
[2018-11-18] MEDS: VANCOMYCIN 1.5 GM in NA CHLORIDE 0.9% 500 ML IVPB SCH (14:24)
[2018-11-18 15:07] LABS: Urine Appearance CLOUDY; Urine Bilirubin NEGATIVE (NEG); Urine Blood 2+ (NEG); Urine Color DK YELLOW; Urine Glucose NEGATIVE (NEG); Urine Protein 1+ (NEG)
[2018-11-18 16:07] LABS: Urine Bacteria LOADED /HPF (NONE SEEN); Urine Culture Reflex Order REFLEXED
[2018-11-18] MEDS ORDERED: NA CHLORIDE 0.9% 250 ML ONE ×3 (16:26→17:03)
[2018-11-18] MEDS: PIPER/TAZO/NS 3.375gm 3.375 GM/100 ML BAG IVPB SCH (16:29)
[2018-11-18] MEDS ORDERED: NA CHLORIDE 0.9% 250 ML IV ONE ×3 (16:31→19:00)
[2018-11-18] MEDS ORDERED: DOPAMINE/D5W 400 MG/250 ML BAG IV PRN (19:16)
[2018-11-18] MEDS: ATORVASTATIN 40 MG TAB PO SCH (19:59)
[2018-11-18] MEDS: ONDANSETRON 4 MG/2 ML VIAL IV PRN (20:25)
--- NOTE | 2018-11-18 21:56 | RAD REPORT ---
EXAM DESCRIPTION: US - Abdomen Exam Complete - 11/18/2018 9:48 pm CLINICAL HISTORY: Abdominal pain. Elevated Liver Enzymes, Elevated WBC COMPARISON: No comparisons FINDINGS: The liver is normal in size, shape and echotexture. Mild intrahepatic biliary dilatation i s possible. The gallbladder contains a significant amount of gall sludge. The gallbladder wall is upper limit of normal measuring 4 mm. Common bile duct is normal in caliber measuring 3 mm. Both kidneys are normal in size, shape and echotexture. No hydronephrosis, focal lesion of concern or perinephric fluid. The spleen is normal in size measuring 11 cm. The pancreas and aorta are obscured by bowel gas. The visualized aspects of the IVC are grossly normal. IMPRESSION: Significant gallbladder sludge is seen with mild intrahepatic biliary dilatation possibl e. MRCP followup assessment may be of value.
[2018-11-19] MEDS: NA CHLORIDE 0.9% 1,000 ML IV SCH ×3 (00:06→17:09)
[2018-11-19] MEDS: PIPER/TAZO/NS 3.375gm 3.375 GM/100 ML BAG IVPB SCH ×3 (00:06→17:09)
--- NOTE | 2018-11-19 02:34 | PN ---
Date of Progress Note: 11/18/2018 Mr. Liu was admitted because of AICD shock, syncope, ventricular tachycardia. Defibrillator w as adjusted. He continued to get his Entresto and Lasix, but since yesterday he had developed a pneu monia and hypotension. He is getting hydration, getting antibiotics. We will attempt low-dose dopam ine to increase his pressures. The pressure is in the 70s systolic. He is fairly asymptomatic with his blood pressure being low. We will hold the Lasix and hold the Entresto, gentle hydration and we will see his progress. KAROLINA/SOFIA Voice ID: [id number] Report ID: [id number]
--- NOTE | 2018-11-19 02:40 | PN ---
Mr. Liu had come in with syncope secondary to AICD shock. His amiodarone was increased. His pacemaker defibrillator was adjusted. [facility] He has been in a paced rhythm; however, he has been having shaking spells and chills and is not f eeling well and remains slightly hypotensive. We will hydrate him. Check chest x-ray, check more bl ood work, make sure he does not have an infection going on. I would hold his Lasix if his blood pres sure became lower. He remains on Entresto. Case was discussed with his son. KAROLINA/SOFIA Voice ID: [id number] Report ID: [id number]
[2018-11-19 04:38] LABS: Absolute Lymphocytes (CBC) 0.4 K/uL (0.7-4.9); Absolute Monocytes 0.8 K/uL (0.1-1.3); Absolute Neutrophil 14.8 K/uL (1.8-8.0); Basophils % 0.2 % (0-1.3); Hematocrit 39.4 % (39.6-49.0); Lymphocytes % 2.6 % (15.3-44.8); Monocytes % 5.1 % (3.3-12.3)
[2018-11-19 05:03] LABS: Blood Morphology Comment NOT SEEN (NOT SEEN); Platelet Estimate DECR; Urine White Blood Cell Casts OK
[2018-11-19 05:06] LABS: Albumin 2.3 g/dL (3.4-5.0); Bilirubin Total 2.9 mg/dL (0.2-1.0); Magnesium 2.4 mg/dL (1.8-2.4); Phosphorus 3.3 mg/dL (2.5-4.9); Potassium 3.9 mmol/L (3.5-5.1); Protein, Total 5.3 g/dL (6.4-8.2)
--- NOTE | 2018-11-19 07:55 | EKG ---
Test Date: 2018-11-18 Test Time: 20:39:58 Quality Assurance Manager: RT-O MEASUREMENT RESULTS: Intervals: Rate: 104 CT: QRSD: 174 QT: 394 QTc: 518 [place]: P: CT: QRS: -40 T: 141 INTERPRETIVE STATEMENTS: Demand pacemaker, interpretation is based on intrinsic rhythm Undetermined rhythm Left axis deviation Nonspecific intraventricular block Abnormal ECG Compared to ECG 11/16/2018 08:22:12 Left-axis deviation now present Electronically Signed On 11-19-18 07:53:56 SCHOOL LEADER by Dean Ferreira
--- NOTE | 2018-11-19 08:32 | ECHO ---
HEIGHT: 5 ft 8 in WEIGHT: 203 lb 4 oz DATE OF STUDY: 11/16/[address]: Dean Ferreira MD 2-DIMENSIONAL: YES M.MODE: YES DOPPLER: YES COLOR FLOW: YES TDS: PORTABLE: YES DEFINITY: BUBBLE STUDY: DIAGNOSIS: VENTRICULAR TACHYCARDIA, CHEST PAIN CARDIAC HISTORY: CATHERIZATION: YES SURGERY: YES PROSTHETIC VALVE: NO PACEMAKER: YES MEASUREMENTS (cm) DIASTOLIC (NORMALS) SYSTOLIC (NORMALS) IVSd 1.0 (0.6-1.2) LA Diam 3.9 (1.9-4.0) LVEF 17% LVIDd 5.9 (3.5-5.7) LVIDs 5.4 (2.0-3.5) %FS 8% LVPWd 1.0 (0.6-1.2) Ao Diam 3.5 (2.0-3.7) 2 DIMENSIONAL ASSESSMENT: RIGHT ATRIUM: NORMAL LEFT ATRIUM: NORMAL RIGHT VENTRICLE: NORMAL LEFT VENTRICLE: DILATED TRICUSPID VALVE: NORMAL MITRAL VALVE: MITRAL ANNULAR CALCIFICATION PULMONIC VALVE: NORMAL AORTIC VALVE: SCLEROSIS PERICARDIAL EFFUSION: NONE AORTIC ROOT: NORMAL LEFT VENTRICULAR WALL MOTION: SEVERE GLOBAL HYPOKINESIS DOPPLER/COLOR FLOW: TRACE AORTIC, MITRAL AND TRICUSPID REGURGITATION. COMMENTS: TRACE AORTIC, MITRAL AND TRICUSPID REGURGITATION. SEVERE GLOBAL HYPOKINESIS. EJECTION FRACTION 17-20%. STATUS POST AUTOMATIC INTERNAL CARDIAC DEFIBRILLATOR. MITRAL ANNULAR CALCIFICATION. AORTIC SCLEROSIS. NO EFFUSION. TECHNOLOGIST: NICOLAS MAYA
[2018-11-19] MEDS: ASPIRIN EC 81 MG TAB PO SCH (08:50)
[2018-11-19] MEDS: AMIODARONE HCL 200 MG TAB PO SCH (08:50)
[2018-11-19] MEDS: GABAPENTIN 300 MG CAP PO SCH ×2 (08:50→21:44)
[2018-11-19] MEDS: DOCUSATE NA 100 MG CAP PO SCH ×2 (08:50→21:44)
[2018-11-19] MEDS: CLOPIDOGREL 75 MG TABLET PO SCH (08:50)
[2018-11-19] MEDS: SACUBITRIL/VALSARTAN 24/26 MG TAB PO SCH (08:51)
--- NOTE | 2018-11-19 15:16 | P.PN ---
Subjective Date of Service: 11/19/18 Chief Complaint: Chest pain Subjective: No new changes, No C/O voiced, Improving Patient seen and examined at bedside. Son at bedside. Chart reviewed and case discussed with nursing staff. Patient recieved entresto yesterday and he developed hypotension, with SBP in 40 -50s. He was gently hydrated with small boluses, BP responded slightly. This am , BP improved though still low. Per family at bedside, his baseline BP is low at home with SBP in 80s. Review of Systems 10-point ROS is otherwise unremarkable Physical Examination - Vital Signs Temperature: 99.1 F Blood Pressure: 83/47 Pulse: 60 Respirations: 22 Pulse Ox (%): 96 - Physical Exam General: Alert, In no apparent distress, Oriented x3 HEENT: Atraumatic, PERRLA, EOMI Neck: Supple, JVD not distended Respiratory: Clear to auscultation bilaterally, Normal air movement Cardiovascular: Regular rate/rhythm, Normal S1 S2, Other (paced rhythm) Gastrointestinal: Normal bowel sounds, No tenderness Musculoskeletal: No tenderness Integumentary: No rashes Neurological: Normal speech, Normal tone, Normal affect Lymphatics: No axilla or inguinal lymphadenopathy Assessment And Plan - Plan This is an 80-year-old male with: Ventricular tachycardia, status post cardioversion History of pacemaker Continue to monitor in ICU. Pacemaker/defibrillator setting threshold decreased to 155. Continue decreased amiodarone to patient's home dose of 100 mg daily. Coronary artery disease with CABG Cardiology consulted. Recommendations appreciated Essential Hypertension with hypotension at this time. Hold entrestro and other BP medications at this time. continue lasix. may need to hold if BP drops too low. Hyperlipidemia Continue statin Guillain-[place] syndrome Elevated creatinine, likely secondary to ventricular tachycardia and cardioversion Troponin trending down Leukocytosis Sepsis, with shock Left sided pneumonia Continue IV antibiotics, IVF Acute kidney injury on ? underlying chronic disease, stage unknown Creatine stable, monitor. Likely 2/2 shock. Continue gently hydration Elevated LFTs likely 2/2 shock Monitor via labs DVT prophylaxis: Aspirin and Plavix GI prophylaxis: Not needed Diet: Heart healthy Disposition: Continue to monitor in ICU. If stable overnight, can transfer to floor. Physician Review: Patient Assessed, Agree with Above Assessment and Plan
--- NOTE | 2018-11-19 19:25 | PN ---
Date of Progress Note: 11/19/2018 Subjective: Mr. Liu had come in with ventricular tachycardia, AICD shock. His defibrillator was adjusted. He has done well from that department. He, however, has been hypotensive. Yesterday, blood pressure was 60 to 70 systolic. We attempted to use dopamine to raise his blood pressure in a ddition to hydration, however, he became very agitated, tachycardic, very uncomfortable, so the dopam ine was discontinued. We elected to stop his Lasix, stop his Entresto for now. He received gentle h ydration. Today, his blood pressure is 88 systolic, asymptomatic. He feels better in general. He i s eating. He still feels kind of weak, but he was found to have a pneumonia that is being treated wi th antibiotics. We will continue present regimen. Continue ICU observation. We will continue to fo llow him. KAROLINA/BRUNILDAL Voice ID: [id number] Report ID: [id number]
[2018-11-19] MEDS: ATORVASTATIN 40 MG TAB PO SCH (21:44)
[2018-11-20] MEDS: PIPER/TAZO/NS 3.375gm 3.375 GM/100 ML BAG IVPB SCH ×3 (01:03→16:45)
[2018-11-20] MEDS: VANCOMYCIN 1.5 GM in NA CHLORIDE 0.9% 500 ML IVPB SCH (03:06)
[2018-11-20 05:10] LABS: Absolute Lymphocytes (CBC) 0.5 K/uL (0.7-4.9); Absolute Neutrophil 12.6 K/uL (1.8-8.0); Basophils % 0.4 % (0-1.3); Eosinophils % 0.2 % (0-4.4); Hematocrit 36.3 % (39.6-49.0); Lymphocytes % 3.7 % (15.3-44.8); MPV 10.1 fL (7.6-11.3); Monocytes % 7.2 % (3.3-12.3)
[2018-11-20 05:30] LABS: Albumin 2.2 g/dL (3.4-5.0); Bilirubin Total 3.1 mg/dL (0.2-1.0); Magnesium 2.6 mg/dL (1.8-2.4); Phosphorus 3.2 mg/dL (2.5-4.9); Potassium 3.8 mmol/L (3.5-5.1)
[2018-11-20] MEDS: NA CHLORIDE 0.9% 1,000 ML IV SCH ×3 (06:00→19:51)
[2018-11-20] MEDS: DOCUSATE NA 100 MG CAP PO SCH ×2 (08:17→19:51)
[2018-11-20] MEDS: ASPIRIN EC 81 MG TAB PO SCH (08:17)
[2018-11-20] MEDS: GABAPENTIN 300 MG CAP PO SCH ×2 (08:17→19:52)
[2018-11-20] MEDS: CLOPIDOGREL 75 MG TABLET PO SCH (08:17)
[2018-11-20] MEDS: AMIODARONE HCL 200 MG TAB PO SCH (08:17)
--- NOTE | 2018-11-20 18:10 | PN ---
Subjective: Currently, the patient is lying in bed. He looks comfortable. He is awake. His blood pressure continued to be low. He has no chest pain, no abdominal pain. His son at the bedside and t he patient would like to be a full code. Overnight, there was no issue. Objective: Vital Signs: Blood pressure is 73/48, respiratory rate 19, pulse 60, and temperature 98. 7. General: The patient is alert and oriented x3, does not look in any distress. HEENT: Atraumatic and normocephalic. PERRLA. Oral mucosa is moist. Neck: Supple. No JVP. Chest: Clear to auscultation bilaterally. Heart: Regular rate and rhythm. S1 and S2 normal. No gallop or murmur. Abdomen: Soft, nontender. No masses. No hepatosplenomegaly. Positive bowel sounds. Obese. Extremities: No clubbing, cyanosis, or edema. No calf tenderness. Neurologic: Grossly intact. Laboratory Data: Currently CBC showed white blood cells 14.6, hemoglobin 12.1, and platelets 117. C hemistry showed sodium 135, chloride 102, BUN of 57, creatinine of 2.29, bilirubin 3.1, AST of 935, A LT of 629. Chest x-ray still pending today. Assessment And Plan: 1.Ventricular tachycardia, status post cardioversion with history of pacemaker placement. Currently , the patient is on amiodarone orally 100 mg daily. Could not tolerate dopamine drip, Cardiology kalina cooley. 2.History of coronary artery disease with history of coronary artery bypass graft, Dr. Hanna henson, appreciate help. 3.History of hypertension, but he is currently hypotensive. He is again only on amiodarone. His La six was placed on hold due to he is hypotensive as well as Entresto. 4.History of hyperlipidemia. Continue on statin. 5.History of Guillain-[place] syndrome. 6.Elevated creatinine, etiology ? Echocardiogram done on November 19 showed ejection fraction of 15% to 20%, so I could not give the patient IV fluid as I am worried about congestive heart failure. I will consult Nephrology to evaluate the patient and give advice. 7.Elevated liver function tests, most likely secondary to shock liver, also sludge in the bile duct on ultrasound. I will consult Surgery to see if that needs to be addressed knowing the patient is no t a candidate for surgery. 8.Leukocytosis with questionable sepsis and pneumonia. The patient is on Zosyn empirically and vanc omycin. Culture of the urine was negative. Culture of the blood so far negative too. Continue IV a ntibiotics. 9.Code status, full. The patient understands he may not come of the vent if he got intubated. 10.Long discussion with the son and he understands the prognosis is overall poor. PALLAVI/SOFIA Voice ID: [id number] Report ID: [id number]
--- NOTE | 2018-11-20 18:13 | CON ---
Date of Consultation: 11/20/2018 Brief History Of Present Illness: The patient is an 88-year-old male with history of coron pia artery disease and pacemaker/defibrillator, he was admitted for chest pain earlier in the morning on 11/16/2018. He had sharp chest pain associated with shortness of breath and palpitations that ma de him feel very weak. He ultimately called his son, who called the ambulance. The patient was foun d to be in ventricular tachycardia with a rate of 150. In the ER, amiodarone was tried to convert saira cummins, but was unsuccessful. He was then cardioverted with 250 joules, which helped resolve his symptoms . He is found to have a BNP of 13,000 and a troponin of 0.6. After cardioversion, symptoms have res olved, although he was still hypotensive requiring pressor support. Amiodarone was discontinued. Th e patient was admitted for further workup. 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 Family History: Father had heart disease. Mother had stroke. Brother had cancer. Sister had cance r. He was a former heavy smoker. Denies alcohol or recreational drug use. Allergies: TO ALLOPURINOL, KEFLEX, LOVENOX, AND ALDACTONE. Home Medications: Include Plavix, aspirin, Neurontin, nitroglycerin, Entresto, isosorbide mononitrat e, amiodarone, atorvastatin, Lasix, Mag hydroxide. Review of Systems: A 10-point review of systems other than HPI. Specifically denies any abdominal pain throughout his a dmission. Physical Examination: Vital Signs: At the time of my examination, his BMI is 31.6, he is 5 feet 8 inches and 208 pounds. His clinical panel indicates that he had a blood pressure of 84/68, pulse is 60, respiratory rate 20, temperature 97.8. General: He is awake, alert, and oriented. Psychiatric: He is appropriate, conversive. HEENT: He is normocephalic. His sclerae are anicteric. His mucous membranes are moist. His oropha rynx is clear. Neck: He has no JVD. Lungs: He is clear to auscultation bilaterally from respiratory standpoint. Cardiovascular: He has regular rate and rhythm. Currently, he has a midline sternotomy scar. He urbina s a pacemaker in place. GI: Soft, nontender, nondistended. No rebound. No guarding. No focal peritonitis. Negative [place] y sign. Abdomen: His abdominal exam is completely benign. Musculoskeletal: No tenderness. No swelling, edema, or clubbing. Skin: Warm and dry. Laboratory Data: Reveals a white blood cell count of 14.3, hemoglobin is 12.1, hematocrit is 36.3, h is platelet count is 117. His neutrophils are 88%. His sodium 135, potassium 3.8, chloride 102, car bon dioxide 22, BUN 57, creatinine 2.29, glucose is 102. Lactic acid was 2.3 on 11/18/2018. His víctor sphorus is 3.2, magnesium 2.6, total bilirubin 3.1. His AST is 935, ALT is 629, alkaline phosphatase is 78. His procalcitonin was 3.38 on 11/18/2018 as well. His UA shows 2+ blood, 5-10 red blood janine ls, 5-10 white blood cells, loaded bacteria, and 1+ protein in his urine. He had an imaging performe d which included abdominal ultrasound on 11/18/2018, which is officially read as significant gallblad binh sludge is seen with mild intrahepatic biliary dilatation, possible MRCP. Follow up assessment tiffani ferris be of value. Assessment And Plan: This is an 88-year-old male, who comes in with multiple cardiac and vascular pr oblems, who presents with no signs or symptoms of acute cholecystitis or any problem of the any surgi lucina issue of the biliary system at this time. 1.Continue medical management. 2.Should patient develop any signs or symptoms of biliary problem, I recommend MRCP if the patient's pacemaker is safe for this procedure. If not, I recommend HIDA scan for further evaluation. Furthe rmore, however, I find that this patient is not a good surgical candidate and would be extremely high risk for any surgical procedure and as such, should his gallbladder become a problem or be a problem contributing to his current medical situation. I recommend placement of a cholecystostomy tube for biliary decompression, medical optimization, and then surgical planning going forward at that time. I have explained the risks, benefits, and alternatives of the above stated plan to the patient. He a grees to proceed as indicated. Thank you for this interesting consult. SHERRON/SOFIA Voice ID: [id number] Report ID: [id number]
--- NOTE | 2018-11-20 18:22 | RAD REPORT ---
EXAM DESCRIPTION: [facility] Single View11/20/2018 5:41 pm CLINICAL HISTORY: Chest pain COMPARISON: November 18 FINDINGS: No significant change in the left basilar opacity. Mild additional interstitial opacities are unchanged. . The heart is mildly to moderately enlarged. Postsurgical changes involve the chest. Pacemaker leads in place IMPRESSION: No significant change in left basilar opacity which may represent pneumonia No change in mild bilateral interstitial lung opacities which may represent mild interstitial pulmona ry
[2018-11-20 19:23] LABS: Urine Appearance CLOUDY; Urine Bilirubin NEGATIVE (NEG); Urine Blood TRACE (NEG); Urine Color DK YELLOW; Urine Glucose NEGATIVE (NEG); Urine Protein 1+ (NEG); Urine pH 5.5 (5.0-7.0)
[2018-11-20] MEDS: ATORVASTATIN 40 MG TAB PO SCH (19:51)
[2018-11-20 20:23] LABS: UR PROTEIN 102 mg/dL (<11.9); UR SODIUM 9 mmol/L (27-287)
[2018-11-20 21:22] LABS: Urine Bacteria <20 /HPF (NONE SEEN); Urine Microscopic Reflex ORDER UMIC; Urine RBC <5 /HPF (NONE SEEN)
[2018-11-20 21:23] LABS: Urine Amorphous Sediment 2+ /HPF (NONE SEEN); Urine Culture Reflex Order NOT NEEDED
[2018-11-21] MEDS: PIPER/TAZO/NS 3.375gm 3.375 GM/100 ML BAG IVPB SCH ×3 (01:10→16:33)
[2018-11-21] MEDS: VANCOMYCIN 1.5 GM in NA CHLORIDE 0.9% 500 ML IVPB SCH (05:05)
[2018-11-21 05:27] VITALS: BMI 32.3
[2018-11-21 06:02] LABS: Absolute Lymphocytes (CBC) 0.7 K/uL (0.7-4.9); Absolute Monocytes 1.2 K/uL (0.1-1.3); Absolute Neutrophil 9.5 K/uL (1.8-8.0); Basophils % 0.2 % (0-1.3); Eosinophils % 0.5 % (0-4.4); Hematocrit 36.6 % (39.6-49.0); Lymphocytes % 5.7 % (15.3-44.8); MPV 10.2 fL (7.6-11.3); Monocytes % 10.3 % (3.3-12.3); RBC Red Blood Cell Count 3.86 M/uL (4.33-5.43)
[2018-11-21 06:04] LABS: Potassium 3.7 mmol/L (3.5-5.1)
[2018-11-21] MEDS ORDERED: POTASSIUM CL SA 10 MEQ TAB PO ONE (06:18)
[2018-11-21] MEDS: CLOPIDOGREL 75 MG TABLET PO SCH (08:20)
[2018-11-21] MEDS: GABAPENTIN 300 MG CAP PO SCH ×2 (08:20→22:18)
[2018-11-21] MEDS: ASPIRIN EC 81 MG TAB PO SCH (08:20)
[2018-11-21] MEDS: AMIODARONE HCL 200 MG TAB PO SCH (08:20)
[2018-11-21] MEDS: DOCUSATE NA 100 MG CAP PO SCH ×2 (08:20→22:18)
[2018-11-21] MEDS: NA CHLORIDE 0.9% 1,000 ML IV SCH ×2 (08:40→16:00)
[2018-11-21 11:58] LABS: Albumin 2.1 g/dL (3.4-5.0); Bilirubin Direct 2.1 mg/dL (0-0.2); Bilirubin Total 2.7 mg/dL (0.2-1.0); Protein, Total 5.5 g/dL (6.4-8.2)
[2018-11-21] MEDS: GUAIFENESIN/DM 5 ML UCUP PO SCH ×3 (12:25→22:17)
--- NOTE | 2018-11-21 13:08 | RAD REPORT ---
EXAM DESCRIPTION: US - UPPER EXTREMITY VENOUS UNILATE - 11/21/2018 12:58 pm CLINICAL HISTORY: left arm swelling Left arm pain and swelling. COMPARISON: No comparisons FINDINGS: Left upper extremity venous system was interrogated with Doppler technique. Normal flow, c ompressibility and augmentation was noted. There is no DVT present. IMPRESSION: No evidence of left upper extremity deep venous thrombosis.
--- NOTE | 2018-11-21 14:18 | PN ---
Subjective: Currently the patient is lying in bed, but he was doing physical therapy earlier. He urbina d no issue overnight. Blood pressure improved. On chest pain. No abdominal pain. He decided to swi tch his code to DNR (Do Not Resuscitate). Shortness of breath continued to improve. There is no pal pitation, no abdominal pain, no nausea or vomiting. Son at the bedside. Objective: Vital Signs: Currently, blood pressure is 100/49, respiratory rate 20, pulse 60, tempera ture 97.9. General: The patient is alert and oriented x3. Does not look in any distress. HEENT: Atraumatic, normocephalic. PERRLA. Oral mucosa is dry. Neck: Supple. No JVD. No carotid bruits. No thyroid masses. Chest: Clear to auscultation. Good air entry. Heart: Regular rate and rhythm. S1, S2 normal. No gallop or murmur. Abdomen: Soft. Nontender. No masses. No hepatosplenomegaly. Positive active bowel sounds. Extremities: No clubbing, cyanosis, or edema. No calf tenderness. Neurologic: Grossly intact. Laboratory Data: Labs today showed CBC with white blood cells 11.4, hemoglobin 12.6, platelet 130. Chemistry within normal except for sodium 134, creatinine is down to 2.2, BUN 62, calcium 7.5. LFTs today pending. Chest x-ray done yesterday showed no change in the left basilar opacity with question able pneumonia. There was no change in mild bilateral interstitial lung opacities, which may represe nt mild interstitial pulmonary edema. Assessment And Plan: 1.Ventricular tachycardia versus cardioversion with history of pacemaker placement. The patient on amiodarone orally. Could not tolerate dopamine drip and Cardiology following. No further plan appar ently by Cardiology. 2.History of coronary disease and coronary artery bypass graft, stable at this point. 3.History of hypertension with few days of hypotension in the ICU which resolved today. Patient's L asix and Entresto were placed on hold due to the hypertension will continue on hold for now. 4.Acute on chronic renal insufficiency, not much better. Nephrology consult requested. The patient has severe cardiomyopathy with low ejection fraction. We will be worried to give him IV fluid with this severe cardiomyopathy, so we will wait for Nephrology output. 5.Elevated liver function tests, most likely secondary to shock liver. The patient have also sludge in the bile duct. On the ultrasound done on the 18 of November, General Surgery consult requested and the patient is not a surgical candidate, of course, given his comorbidities. LFTs pending today . To continue but we always can proceed with MRCP. If that is positive, then we always can replace the gallbladder drain, which is normally less morbid procedure then cholecystectomy. 6.Leukocytosis with questionable sepsis, pneumonia, and the x-ray is still of the left lower lobe. The patient empirically on Zosyn and vancomycin. This white blood cells down today to 11.4, which is almost normal. Bandemia continued to improve. So far, urine culture was negative and blood culture is pending negative. 7.Code status was full code. The patient decided to switch to DNR/DNI, yesterday. 8.Physical therapy started today, we will transfer the patient to the floor. 9.History of hyperlipidemia. Patient on statin. 10.I will start the patient on DVT prophylaxis with Lovenox. Today patient high risk for thrombosis . 11.Discharge plan depends when patient is stable. LFTs back to normal and kidney function improve. MT/MODL Voice ID: [id number] Report ID: [id number]
[2018-11-21] MEDS ORDERED: ENOXAPARIN 30 MG/0.3 ML SQ SCH (17:00)
--- NOTE | 2018-11-21 19:03 | PN ---
Mr. Liu is being observed in the ICU status post AICD shock for ventricular tachycardia. Amio darone initially was increased, but he did not tolerate the dose. He had his defibrillator adjusted. However, he became hypotensive and was found to have pneumonia. He remained hypotensive despite ho lding Lasix and Entresto. Still getting hydration and antibiotics. He will stay in the ICU for now. Once his blood pressure is improved, he can go back to a regular room. I would still hold the Lasi x and Entresto until he recovers from his pneumonia. We can always see him as an outpatient after th at and decide when to restart both of those medicines. His last ejection fraction is 17%. He has no congestive heart failure symptoms at this present. KAROLINA/SOFIA Voice ID: [id number] Report ID: [id number]
[2018-11-21] MEDS: ATORVASTATIN 40 MG TAB PO SCH (22:18)
[2018-11-21] MEDS: HEPARIN 5000 UNIT/ML 1 ML VIAL SQ SCH (22:18)
--- NOTE | 2018-11-21 22:38 | P.CNS ---
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 pt SBP at baseline 90-100, pt devlope VT required cardioversion, SBP dropped to 60s, cr at baseline 1.2-1.4 and levated to 2.2 with elevated LFT pt started on pressers but devloped VT again now on IVF SBP improved and also LFT improved no chest pain, palpaitaion, nausea had bloody tinged sputum Allergies allopurinol Allergy (Mild, Verified 11/16/18 10:56) Itching/Hives/Rash cephalexin monohydrate [From Keflex] Allergy (Mild, Verified 11/16/18 10:56) Itching/Hives/Rash enoxaparin sodium [From Lovenox] Allergy (Mild, Verified 11/16/18 10:56) Hives/Rash spironolactone [From Aldactone] Allergy (Unknown, Verified 11/16/18 10:56) Unknown Home Medications: Clopidogrel Bisulfate [Plavix*] 75 mg PO DAILY 11/26/15 Gabapentin [Neurontin] 300 mg PO BID 11/26/15 Nitroglycerin 0.4 mg PO SEECOM PRN 11/26/15 Sacubitril/Valsartan [Entresto 24 mg-26 mg Tablet] 1 tab PO BID #60 tab Isosorbide Mononitrate [Isosorbide Mononitrate ER] 1 tab PO DAILY 01/03/17 Amiodarone HCl 100 mg PO DAILY 12/16/17 Aspirin [Aspir-Low] 81 mg PO DAILY 12/16/17 Atorvastatin Calcium [Lipitor] 40 mg PO BEDTIME 12/16/17 Furosemide [Lasix] 40 mg PO BIDL #60 tab 12/18/17 Mag Hydroxide 8% [Milk Of Magnesia] 30 ml PO DAILY PRN 11/16/18 - Past Medical/Surgical History Diabetic: No -: pacemaker/defilbrillator -: htn -: chf -: gerd -: [place] -: gullian barre 's -: tb before the -: hypotension -: hyperlipidemia -: cardioversion afib 2 years ago -: cad -: bph -: pacemaker -: cabg -: heart stents x1 -: appendectomy -: wedge resection on left lung - Family History Father Medical History: Heart disease Notes: heart attack Mother Medical History: Stroke Brother Medical History: Cancer Sister Medical History: Cancer - Social History Alcohol use: No CD- Drugs: No Caffeine use: No Place of Residence: Home Physical Examination Temp Pulse Resp BP Pulse Ox 97.7 F 60 18 92/50 L 98 11/21/18 20:00 11/21/18 20:00 11/21/18 20:00 11/21/18 20:00 11/21/18 20:00 General: Alert, Mild distress HEENT: Atraumatic Neck: Supple, Without JVD or thyroid abnormality Respiratory: Clear to auscultation bilaterally Cardiovascular: Regular rate/rhythm, Normal S1 S2, Edema Gastrointestinal: Normal bowel sounds - Problems (1) MORALES (acute kidney injury) Current Visit: Yes Status: Acute (2) Ventricular tachycardia Onset Date: 11/18/18 Current Visit: Yes Status: Acute (3) Shortness of breath Current Visit: No Status: Acute (4) Atrial fibrillation Onset Date: 01/04/17 Current Visit: No Status: Chronic Qualifiers: Atrial fibrillation type: chronic Qualified Code(s): I48.2 - Chronic atrial fibrillation (5) Essential hypertension Onset Date: 01/04/17 Current Visit: No Status: Chronic (6) History of pacemaker Current Visit: No Status: Chronic Conclusions/Impression: An 80-year-old man with history of CAD S?p CABG, CHF S/p AICD , HLD , 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 pt SBP at baseline 90-100, pt devlope VT required cardioversion, SBP dropped to 60s, cr at baseline 1.2-1.4 and levated to 2.2 with elevated LFT pt started on pressers but devloped VT again now on IVF SBP improved and also LFT improved no chest pain, palpaitaion, nausea had bloody tinged sputum MORALES likely due to ischemic ATN cr stable will cont IVF fluid for now pt with signs of fluid overlaod CXR tomorrow US no hydro renal dose meds monitor vanco level elevated LFT liekly due to shoceked liver imporving VT on telemetry AICD cardiology f/u sepsis? f/u cultures monitor vanco level
[2018-11-22] MEDS: NA CHLORIDE 0.9% 250 ML IV PRN ×2 (00:41→06:53)
[2018-11-22] MEDS: NA CHLORIDE 0.9% 1,000 ML IV SCH ×2 (01:18→12:00)
[2018-11-22] MEDS: PIPER/TAZO/NS 3.375gm 3.375 GM/100 ML BAG IVPB SCH ×3 (02:00→17:03)
[2018-11-22] MEDS: GUAIFENESIN/DM 5 ML UCUP PO SCH ×6 (02:00→21:21)
[2018-11-22 03:22] LABS: Urine Protein/Creatinine Ratio 1.19 ratio (<0.15)
[2018-11-22] MEDS: VANCOMYCIN 1.5 GM in NA CHLORIDE 0.9% 500 ML IVPB SCH (03:59)
[2018-11-22 06:03] LABS: Potassium 3.7 mmol/L (3.5-5.1)
[2018-11-22] MEDS ORDERED: POTASSIUM CL SA 10 MEQ TAB PO ONE (08:00)
[2018-11-22] MEDS ORDERED: NA CHLORIDE 0.9% 1,000 ML IV ONE (08:01)
[2018-11-22] MEDS ORDERED: NA CHLORIDE 0.9% 1,000 ML ONE (08:10)
[2018-11-22] MEDS: CLOPIDOGREL 75 MG TABLET PO SCH (09:00)
[2018-11-22] MEDS: ASPIRIN EC 81 MG TAB PO SCH (09:00)
[2018-11-22] MEDS: HEPARIN 5000 UNIT/ML 1 ML VIAL SQ SCH (09:00)
[2018-11-22] MEDS: AMIODARONE HCL 200 MG TAB PO SCH (10:16)
[2018-11-22] MEDS: DOCUSATE NA 100 MG CAP PO SCH ×2 (10:17→21:21)
[2018-11-22] MEDS: GABAPENTIN 300 MG CAP PO SCH ×2 (10:17→21:21)
--- NOTE | 2018-11-22 10:22 | RAD REPORT ---
EXAM DESCRIPTION: [facility] Single View11/22/2018 8:54 am CLINICAL HISTORY: Chest pain COMPARISON: November 20, 2018 FINDINGS: Left basilar opacity has progressed. No change in mild additional bilateral pulmonary opacities Heart is mildly to moderately enlarged. Pacemaker leads in place. Postsurgical changes involve the ch est IMPRESSION: Left basilar opacity has progressed probably representing a combination of small to mode rate pleural effusion and left pneumonia or atelectasis Mild additional interstitial lung opacities likely represent interstitial pulmonary edema
--- NOTE | 2018-11-22 10:49 | P.PN ---
Subjective Date of Service: 11/22/18 Chief Complaint: Chest pain Subjective: Improving No abdominal pain, tolerating diet well, feels swollen due to fluid Physical Examination - Vital Signs Temperature: 97 F Blood Pressure: 74/47 Pulse: 60 Respirations: 18 Pulse Ox (%): 95 - Physical Exam General: Alert, In no apparent distress, Cooperative Gastrointestinal: Soft and benign, No tenderness, No masses, No rebound, No guarding Assessment And Plan - Plan - no evidence of biliary dysfunction - will sign off for now, re-consult for future needs Physician Review: Patient Assessed, Agree with Above Assessment and Plan
[2018-11-22] MEDS ORDERED: FUROSEMIDE 40 MG TABLET PO ONE (15:00)
[2018-11-22] MEDS: MIDODRINE HCL 5 MG TABLET PO SCH ×2 (15:19→21:21)
--- NOTE | 2018-11-22 20:40 | PN ---
Date of Progress Note: 11/22/2018 Subjective: The patient was seen and examined. Chart reviewed and case discussed with RN. The patient did have some hypotension earlier this morning, 70s over 40s, improved with IV fluids. Otherwise, no complaints. Son states that his blood pressure usually runs on the low side due to his medications and he usually is asymptomatic. Medications: List reviewed. Physical Examination: Vital Signs: Temperature 97.9, heart rate 68, blood pressure is 72/44 initially , improved to 92/62, respirations 18, O2 is 93% on 2 liters via nasal cannula. General: Awake, alert, and oriented x3. Elderly male, ill-appearing, obese. CV: S1, S2. Peripheral pulses present. Respiratory: Diminished breath sounds at the bases. No wheezing. Gastrointestinal: Abdomen is soft, nontender, nondistended. Positive bowel sounds. Extremities: No clubbing or cyanosis. The patient does have pedal edema. Neurologic: Nonfocal. Laboratory Data: Sodium 135, potassium 3.7, chloride 105, CO2 22, BUN 60, creatinine 2.02, glucose 108, calcium 7.4. WBC 11.4, H and H 12.6 and 36.6, platelets 130, neutrophils 83.3%. Assessment And Plan: An 88-year-old male with. 1. Ventricular tachycardia status post cardioversion, history of pacemaker placement. Continue amiodarone. Appreciate Cardiology input. 2. Coronary artery disease of [place] artery and [place] heart status post CABG , stable. 3. Essential hypertension. The patient was hypotensive and currently still hypotensive. The patient is on Lasix and Entresto. We will hold as needed. 4. Elevated liver function tests secondary to shocked liver. The patient was seen by General Surgery due to sludge in the bile duct on the ultrasound, however, not a surgical candidate. LFTs are trending down, may need gallbladder drain. We will obtain MRCP. 5. Chronic kidney injury. Kidney function slightly improved; however, still above baseline. Nephrology on board. The patient does have history of CHF and low EF; therefore, we will need to give IV fluids with caution. The patient did receive some IV fluids this morning due to hypotension. 6. Leukocytosis with questionable sepsis secondary to pneumonia. Chest x-ray shows left lower lobe abnormality. We will continue on empiric antibiotics. WBC is improving. Blood culture is pending. 7. CODE STATUS: patient was switched to do not resuscitate, do not intubate yesterday after attending at the time Dr. Hearn discussed with patient and family. 8. Mixed hyperlipidemia. Continue statin. GI and DVT prophylaxis with SCDs due to hemoptysis. 9. Hemoptysis: secondary to significant overall cough. May need CT chest. Consult pulmonary. Plan: Continue PT. Continue to monitor overall poor prognosis. /SOFIA Voice ID: [id number] Report ID: [id number] MTDD
[2018-11-22] MEDS: ATORVASTATIN 40 MG TAB PO SCH (21:21)
[2018-11-23] MEDS: PIPER/TAZO/NS 3.375gm 3.375 GM/100 ML BAG IVPB SCH ×3 (00:52→18:22)
[2018-11-23] MEDS: GUAIFENESIN/DM 5 ML UCUP PO SCH ×6 (00:52→22:36)
[2018-11-23] MEDS: NA CHLORIDE 0.9% 1,000 ML IV SCH ×2 (01:03→07:37)
--- NOTE | 2018-11-23 02:38 | PN ---
Date of Progress Note: 11/22/2018 Chief Complaint: Fluid overload, anasarca, acute on chronic kidney injury. The patient developed acute kidney injury, nonoliguric associated with ischemic ATN. Nonoliguric acute kidney injury required IV fluids although the patient developed fluid overload, anasarca but there is ongoing hypotension. The patient is on vancomycin. Review of Systems: The patient is complaining of legs edema and scrotal edema. Denies PND, orthopnea. Physical Examination: Lungs: Diminished breath sounds at bases. Heart: S1, S2. Abdomen: Soft, benign. Extremities: Edema present in both legs. Laboratory Data: Hemoglobin 12.6, WBC 11.4, platelet count 130,000. Sodium 135 , potassium 3.7, chloride 105, CO2 of 22, BUN 60, creatinine 2.07, glucose 108, calcium 7.4. Impression And Plan: 1. Acute kidney injury on chronic kidney disease. Continue IV fluids, hypotension; midodrine started for blood pressure support. 2. Anasarca, scrotal edema. The patient will receive Lasix and IV fluids will be titrated down when blood pressure improves. 3. Continue to monitor blood culture and urine culture, and adjust antibiotics accordingly. Monitor vancomycin levels. I spent total 36 min including 25 min to coordinate care plan. JOHNNY/SOFIA Voice ID: [id number] Report ID: [id number] BEN
[2018-11-23 06:07] LABS: Absolute Lymphocytes (CBC) 0.6 K/uL (0.7-4.9); Absolute Monocytes 0.7 K/uL (0.1-1.3); Absolute Neutrophil 6.6 K/uL (1.8-8.0); Basophils % 0.3 % (0-1.3); Eosinophils % 1.8 % (0-4.4); Hematocrit 36.7 % (39.6-49.0); Lymphocytes % 7.9 % (15.3-44.8); MPV 9.8 fL (7.6-11.3); Monocytes % 8.5 % (3.3-12.3); RBC Red Blood Cell Count 3.84 M/uL (4.33-5.43)
[2018-11-23 06:42] LABS: Albumin 1.9 g/dL (3.4-5.0); Bilirubin Total 2.1 mg/dL (0.2-1.0); Potassium 3.9 mmol/L (3.5-5.1); Protein, Total 5.2 g/dL (6.4-8.2)
[2018-11-23] MEDS ORDERED: POTASSIUM CL SA 10 MEQ TAB PO ONE (06:52)
[2018-11-23] MEDS: AMIODARONE HCL 200 MG TAB PO SCH (08:39)
[2018-11-23] MEDS: MIDODRINE HCL 5 MG TABLET PO SCH ×3 (08:39→22:36)
[2018-11-23] MEDS: GABAPENTIN 300 MG CAP PO SCH ×2 (08:40→22:36)
[2018-11-23] MEDS: DOCUSATE NA 100 MG CAP PO SCH ×2 (08:40→22:36)
[2018-11-23] MEDS: VANCOMYCIN 1.5 GM in NA CHLORIDE 0.9% 500 ML IVPB SCH (15:03)
[2018-11-23] MEDS: FUROSEMIDE 40 MG/4 ML VIAL IV SCH (17:00)
[2018-11-23] MEDS: ALBUMIN HUMAN 25% 100 ML IV SCH (17:01)
--- NOTE | 2018-11-23 20:28 | PN ---
Date of Progress Note: 11/23/2018 Subjective: The patient was seen and examined. Chart reviewed and case discussed with RN and Dr. Mckeon. The patient is still complaining of significant swelling including in the scrotum. States it is difficult to get up due to swelling of his legs and abdomen as well as his scrotum. Son at the beds chalo. Treatment plan explained. All questions answered. Medications: List reviewed. Physical Examination: Vital Signs: Temperature 97.3, heart rate 74, blood pressure 82/53, respirations 22, and O2 is 94% o n room air. General: Awake, alert, oriented x3. Elderly male, somewhat ill-appearing, mild distress, obese. CV: S1, S2. Peripheral pulses present. Respiratory: Diminished breath sounds at the bases, otherwise moving air well. No wheezing. Gastrointestinal: Abdomen is soft, mildly distended. No tenderness. Bowel sounds positive. Extremities: No clubbing or cyanosis. The patient does have peripheral edema. Neurologic: Nonfocal. : The patient has significant scrotal edema. Laboratory Data: Sodium 137, potassium 3.9, chloride 107, CO2 21, BUN 49, creatinine 1.79, glucose 9 7, calcium 7.4, total bilirubin 2.1. AST 174, ALT 257. Albumin 1.9. WBC 8.1, H and H 12.2 and 36.7 , platelets 144, neutrophils 81.5%. Blood culture negative. Final urine culture, no growth. Sputu m culture shows reduced quantity of normal respiratory handy. Assessment And Plan: An 88-year-old male with. 1.Ventricular tachycardia status post cardioversion. The patient does have history of pacemaker sukhwinder cement. We will continue amiodarone. Cardiology on board. 2.Elevated liver function tests secondary to shocked liver. Liver function tests are trending down. The patient was seen by Surgery. No acute issues at this time; therefore, surgery signed off. 3.Chronic kidney injury, improved. Creatinine is improving. IV fluids has been discontinued. We w ill diurese. 4.Congestive heart failure due to systolic dysfunction, acute. We will continue with Lasix. 5.Severe protein-calorie malnutrition. Albumin is less than 2. We will infuse with albumin. 6.Coronary artery disease [place] artery and yurok heart status post CABG without angina, stable. 7.Hypotension improve with Midodrine. Resume Lasix and Entresto as tolerated. 8.Hyperlipidemia, statin. 9.Neutrophilic leukocytosis, resolved. Cultures are negative to date. 10.Code status, DNR. Plan: Strict I's and O's. Insert Mendoza catheter. Due to monitoring close urinary output and due to scrotal swelling the patient was unable to urinate properly. Daily weights. Continue fluid restric tion. We will start with albumin. SA/MODL Voice ID: [id number] Report ID: [id number]
[2018-11-23] MEDS: ATORVASTATIN 40 MG TAB PO SCH (22:36)
[2018-11-24] MEDS: ALBUMIN HUMAN 25% 100 ML IV SCH ×3 (02:23→16:51)
[2018-11-24] MEDS: PIPER/TAZO/NS 3.375gm 3.375 GM/100 ML BAG IVPB SCH ×3 (02:24→16:51)
[2018-11-24] MEDS: GUAIFENESIN/DM 5 ML UCUP PO SCH ×6 (02:24→20:00)
[2018-11-24] MEDS: FUROSEMIDE 40 MG/4 ML VIAL IV SCH ×3 (02:24→16:51)
--- NOTE | 2018-11-24 02:57 | PN ---
Date of Progress Note: 11/23/2018 Chief Complaint: Xouxg-zi-pawjylh kidney injury, nonoliguric, moderately severe, associated with flu id overload lymph edema. History Of Present Illness: The patient has nonoliguric acute kidney injury with ischemic ATN. The patient was started on midodrine for blood pressure control. Review of Systems: Denies fever or chills. Physical Examination: Lungs: Clear to auscultation bilaterally. Heart: S1 and S2. Abdomen: Soft and benign. Extremities: Edema present in upper and lower extremities. Impression And Plan: 1.Acute kidney injury on chronic kidney disease. Continue midodrine for blood pressure support to p revent prerenal azotemia. 2.Anasarca. Continue Lasix and low-sodium diet. 3.Possible sepsis. Monitor blood culture and urine culture. Adjust antibiotics. Monitor vancomyci n toxicity panel. EB/MODL Voice ID: [id number] Report ID: [id number]
[2018-11-24 05:28] LABS: Absolute Lymphocytes (CBC) 0.7 K/uL (0.7-4.9); Absolute Monocytes 0.7 K/uL (0.1-1.3); Absolute Neutrophil 6.1 K/uL (1.8-8.0); Eosinophils % 1.8 % (0-4.4); Hematocrit 34.8 % (39.6-49.0); Lymphocytes % 9.4 % (15.3-44.8); MPV 9.6 fL (7.6-11.3); Monocytes % 9.1 % (3.3-12.3); RBC Red Blood Cell Count 3.69 M/uL (4.33-5.43)
[2018-11-24 05:56] LABS: Albumin 2.2 g/dL (3.4-5.0); Bilirubin Total 1.9 mg/dL (0.2-1.0); Magnesium 2.7 mg/dL (1.8-2.4); Phosphorus 2.5 mg/dL (2.5-4.9); Potassium 3.9 mmol/L (3.5-5.1); Protein, Total 5.2 g/dL (6.4-8.2)
--- NOTE | 2018-11-24 08:26 | P.CNS ---
Date of Consult: 11/24/18 Chief Complaint: Hemoptysis History of Present Illness: Patient is 88 years of age evaluated by me for hemoptysis since admission denies any fever chills slight cough no prior history of pulmonary complaints patient has congestive heart failure status post cardioversion complains of generalized edema coughing up blood all night long quit smoking a very long time ago patient is on Plavix Allergies allopurinol Allergy (Mild, Verified 11/16/18 10:56) Itching/Hives/Rash cephalexin monohydrate [From Keflex] Allergy (Mild, Verified 11/16/18 10:56) Itching/Hives/Rash enoxaparin sodium [From Lovenox] Allergy (Mild, Verified 11/16/18 10:56) Hives/Rash spironolactone [From Aldactone] Allergy (Unknown, Verified 11/16/18 10:56) Unknown Home Medications: Clopidogrel Bisulfate [Plavix*] 75 mg PO DAILY 11/26/15 Gabapentin [Neurontin] 300 mg PO BID 11/26/15 Nitroglycerin 0.4 mg PO SEECOM PRN 11/26/15 Sacubitril/Valsartan [Entresto 24 mg-26 mg Tablet] 1 tab PO BID #60 tab Isosorbide Mononitrate [Isosorbide Mononitrate ER] 1 tab PO DAILY 01/03/17 Amiodarone HCl 100 mg PO DAILY 12/16/17 Aspirin [Aspir-Low] 81 mg PO DAILY 12/16/17 Atorvastatin Calcium [Lipitor] 40 mg PO BEDTIME 12/16/17 Furosemide [Lasix] 40 mg PO BIDL #60 tab 12/18/17 Mag Hydroxide 8% [Milk Of Magnesia] 30 ml PO DAILY PRN 11/16/18 - Past Medical/Surgical History Diabetic: No -: pacemaker/defilbrillator -: htn -: chf -: gerd -: [place] -: gullian barre s -: tb before the s -: hypotension -: hyperlipidemia -: cardioversion afib 2 years ago -: cad -: bph -: pacemaker -: cabg -: heart stents x1 -: appendectomy -: wedge resection on left lung - Family History Father Medical History: Heart disease Notes: heart attack Mother Medical History: Stroke Brother Medical History: Cancer Sister Medical History: Cancer - Social History Alcohol use: No CD- Drugs: No Caffeine use: No Place of Residence: Home Review of Systems General: Weakness Respiratory: Cough, Shortness of Breath, Hemoptysis Cardiovascular: Edema (Generalized anasarca) Physical Examination Temp Pulse Resp BP Pulse Ox 97.2 F 59 19 106/55 L 92 11/24/18 04:00 11/24/18 04:00 11/24/18 04:00 11/24/18 04:00 11/24/18 04:00 General: Alert, In no apparent distress, Oriented x3 HEENT: Atraumatic Neck: Supple Respiratory: Clear to auscultation bilaterally Cardiovascular: Normal S1 S2, Edema (Significant edema) Gastrointestinal: Normal bowel sounds, Soft and benign - Problems (1) Hemoptysis Current Visit: Yes Status: Acute Plan: Patient evaluated by me complaining of hemoptysis since admission chest x-ray abnormal as some interstitial changes with the I suspect chronic left-sided pleural effusion patient's white count is now normal renal function improving liver function tests are also improving severe global hypokinesis patient's cultures are all negative vancomycin was just started he is being on Zosyn blood pressure is slightly low oxygenation satisfactory I have ordered a CT scan of the chest without contrast sitter stopping Plavix
[2018-11-24] MEDS ORDERED: POTASS/SODIUM PHOSPHATE 1 PKT POWD.PACK PO ONE (09:00)
--- NOTE | 2018-11-24 10:09 | RAD REPORT ---
EXAM DESCRIPTION: CT - Thorax Wo Con - 11/24/2018 9:54 am CLINICAL HISTORY: CHF, hemoptysis COMPARISON: November 22 TECHNIQUE: Axial 5 mm thick images of the chest were obtained without IV contrast. All CT scans are performed using dose optimization technique as appropriate and may include automated exposure control or mA/KV adjustment according to patient size. FINDINGS: Right-sided calcified pleural plaquing changes are present with a trace right pleural effu daphnie. Patchy interstitial L an alveolar opacification is present in the posterior lower right lung fi eld. No right-sided pneumothorax. Loculated left apex pleural fluid identifiable creating nodular contour to the pleural space. There a re areas of additional loculation along the left lateral pleural cavity. Moderate pleural effusion is present at the left base partially or mostly loculated. Patchy interstitial and alveolar opacificati on is present in the posterior inferior left upper lobe along the fissure. There is a moderate area o f airspace opacification in the superior and midportion of the left lower lobe with partial atelectas is of the left lobe at the base. Calcified pleural plaquing changes are less prominent on the left. N o left-sided pneumothorax. No abnormal mediastinal or hilar masses or lymphadenopathy seen. No aortic or pulmonary arterial tree dilatation. Assessment is limited in the absence of contrast. Patient has aortic calcifications and very dense coronary artery calcifications. Cardiomegaly is present without pericardial effusion. No chest wall mass or abnormal axillary lymphadenopathy. Patient has fluid retention in the subcutane ous fatty tissues of the chest. IMPRESSION: Left lower lobe superior and mid airspace consolidation most likely pneumonia. There are minimal pneumonia changes in the posterior inferior left upper lobe. Partial atelectasis of the left lower lobe at the base with moderate left-sided pleural effusion. Lef t-sided pleural effusion is mostly loculated. Trace right pleural effusion with posterior right gutter infiltrate and/ or atelectasis. Cardiomegaly without pericardial effusion. Fluid retention is seen in the subcutaneous fat. Findings consistent with cardiac decompensation or volume overload.
[2018-11-24] MEDS: AMIODARONE HCL 200 MG TAB PO SCH (10:48)
[2018-11-24] MEDS: DOCUSATE NA 100 MG CAP PO SCH ×2 (10:48→20:54)
[2018-11-24] MEDS: GABAPENTIN 300 MG CAP PO SCH ×2 (10:48→20:54)
[2018-11-24] MEDS: MIDODRINE HCL 5 MG TABLET PO SCH ×3 (10:48→20:53)
--- NOTE | 2018-11-24 20:15 | PN ---
Date of Progress Note: 11/24/2018 History: The patient seen and examined. Chart reviewed and case discussed with RN and Dr. Gramajo. The patient's blood pressure is improved. Still having hemoptysis. States his swelling has improved slightly. Medications: List reviewed. Physical Examination: Vital Signs: Temperature 97.4, heart rate 60, blood pressure 84/52, respirations 20, O2 95% on room air. General: Awake, alert, oriented x3. Elderly male, somewhat ill-appearing, obese, BMI 36. CV: S1, S2. Regular rate and rhythm. Peripheral pulses present. Respiratory: Diminished breath sounds. No wheezing or stridor. Gastrointestinal: Abdomen is soft, nontender, nondistended. Positive bowel sounds. Extremities: No clubbing, cyanosis. The patient does have peripheral edema. : Significant scrotal edema. Neurologic: Nonfocal. Laboratory Data: Sodium 139, potassium 3.9, chloride 108, CO2 21, BUN 42, creatinine 1.53, glucose 96, calcium 7.6, magnesium 2.7, total bilirubin 1.9, AST 113, ALT 187, albumin 2.2. WBC 7.7, H and H 12.2 and 34.8, platelets 194, neutrophils 78%. Blood cultures no growth to date. CT scan of the chest shows left lower lobe superior middle air space consolidation, most likely pneumonia. Partial atelectasis of the left lower lobe at the base with moderate left- sided pleural effusion, mostly loculated. Trace right pleural effusion with posterior right gutter infiltrate and/or atelectasis. Cardiomegaly without pericardial effusion. Assessment And Plan: An 88-year-old male with: 1. Ventricular tachycardia status post cardioversion. The patient has a paced rhythm. Continue amiodarone. 2. Shock liver. Liver function enzymes trending down. Continue to monitor. 3. Acute systolic heart failure. We will continue diuresis. 4. Acute on chronic kidney injury stage 3. Creatinine is improving. 5. Left-sided pleural effusion, moderate, loculated. 6. Severe protein-calorie malnutrition. Albumin 2.2. 7. Coronary artery disease, [place] artery and [place] heart, status post coronary artery bypass graft without angina. 8. Hypotension. Continue midodrine, somewhat improved. IV fluids have been discontinued due to pleural effusion and fluid retention. 9. Hyperlipidemia. We will continue statin. 10. Gastrointestinal and deep venous thrombosis prophylaxes. SCDs. No chemical anticoagulation due to hemoptysis. 11. Hemoptysis. We will hold Plavix and heparin. Plan: Continue Lasix. Continue albumin infusion. Appreciate Pulmonology input. KEYUR Voice ID: [id number] Report ID: [id number] BEN
[2018-11-24] MEDS: ATORVASTATIN 40 MG TAB PO SCH (20:54)
[2018-11-25] MEDS: ALBUMIN HUMAN 25% 100 ML IV SCH ×3 (00:52→17:49)
[2018-11-25] MEDS: PIPER/TAZO/NS 3.375gm 3.375 GM/100 ML BAG IVPB SCH ×2 (01:01→09:22)
[2018-11-25] MEDS: FUROSEMIDE 40 MG/4 ML VIAL IV SCH ×3 (01:01→17:53)
[2018-11-25] MEDS: VANCOMYCIN 1.5 GM in NA CHLORIDE 0.9% 500 ML IVPB SCH (03:22)
[2018-11-25] MEDS: GUAIFENESIN/DM 5 ML UCUP PO SCH ×6 (03:23→20:00)
--- NOTE | 2018-11-25 03:40 | PN ---
Date of Progress Note: 11/24/2018 Chief Complaint: Acute on chronic kidney injury, nonoliguric, moderately severe, associated with flu id overload anasarca. History Of Present Illness: The patient is on diuretic. The patient was found to have hypotension a nd was started on midodrine. Review of Systems: Denies PND, orthopnea. Physical Examination: Lungs: Clear to auscultation bilaterally. Heart: S1, S2. No pericardial friction rub. Abdomen: Obese, soft, nontender. Extremities: Edema present in both legs. Lab Work: Hemoglobin 12.2, WBC 7.7, platelet count is 194,000. Sodium 139, potassium 3.9, chloride 108, CO2 21, BUN 42, creatinine 1.53, calcium 7.6, albumin 2.2. Impression And Plan: 1.Fluid overload anasarca. The patient was found to have proteinuria of moderate degree. Protein c reatinine ratio is 1.19. Urinalysis was obtained on November 18 and it showed hematuria and leukoc yturia. Microbiology test was obtained. Did not show urinary tract infection. 2.Acute kidney injury on chronic kidney disease. Renal function is gradually improving. Monitor fl uid balance. Avoid nephrotoxic medication. 3.Hypotension. Continue midodrine. 4.Hemoptysis. The patient is undergoing workup with Pulmonary team. JOHNNY/SOFIA Voice ID: [id number] Report ID: [id number]
[2018-11-25 05:21] LABS: Absolute Lymphocytes (CBC) 0.8 K/uL (0.7-4.9); Absolute Monocytes 0.8 K/uL (0.1-1.3); Absolute Neutrophil 5.7 K/uL (1.8-8.0); Basophils % 0.8 % (0-1.3); Eosinophils % 1.6 % (0-4.4); Hematocrit 21.8 % (39.6-49.0); Lymphocytes % 11.2 % (15.3-44.8); MPV 9.5 fL (7.6-11.3); Monocytes % 10.1 % (3.3-12.3); RBC Red Blood Cell Count 2.29 M/uL (4.33-5.43)
[2018-11-25 05:55] LABS: Platelet Estimate ADEQ; Platelets, Giant PRESENT
[2018-11-25 05:56] LABS: Blood Morphology Comment NOTED (NOT SEEN); Ovalocytes 1+
[2018-11-25 06:50] LABS: Hematocrit 34.7 % (39.6-49.0)
[2018-11-25 07:17] LABS: Bilirubin Total 2.1 mg/dL (0.2-1.0); Potassium 3.6 mmol/L (3.5-5.1)
[2018-11-25 07:18] LABS: Albumin 2.5 g/dL (3.4-5.0); Phosphorus 2.6 mg/dL (2.5-4.9); Protein, Total 5.6 g/dL (6.4-8.2)
[2018-11-25] MEDS ORDERED: POTASSIUM 25 MEQ EFFERV TAB PO ONE (09:00)
[2018-11-25] MEDS: DOCUSATE NA 100 MG CAP PO SCH ×2 (09:20→20:55)
[2018-11-25] MEDS: GABAPENTIN 300 MG CAP PO SCH ×2 (09:21→20:56)
[2018-11-25] MEDS: AMIODARONE HCL 200 MG TAB PO SCH (09:21)
[2018-11-25] MEDS: MIDODRINE HCL 5 MG TABLET PO SCH ×3 (09:28→20:56)
--- NOTE | 2018-11-25 10:14 | P.PN ---
Subjective Date of Service: 11/25/18 Chief Complaint: Hemoptysis Subjective: Improving (Although is a mopped this is improving he still has gross anasarca poor appetite) Review of Systems General: Weakness Respiratory: Hemoptysis Cardiovascular: Edema Physical Examination - Vital Signs Temperature: 97.5 F Blood Pressure: 99/59 Pulse: 60 Respirations: 20 Pulse Ox (%): 96 - Physical Exam General: Alert, Oriented x3 HEENT: Atraumatic Neck: Supple Respiratory: Diminished Cardiovascular: Edema (Gross anasarca) Gastrointestinal: Normal bowel sounds Assessment & Plan - Problems (Diagnosis) (1) Hemoptysis Current Visit: Yes Status: Acute Plan: Patient is 88 years of age admitted with heart failure CT scan shows a left lower lobe infiltrate with loculated pleural effusions denies any shortness of breath chest pain is white count is normal cultures are negative so far. I agree continue with IV vancomycin and meropenem for at least 2 weeks patient will need a PICC line lower risk for cancer Physician Review: Patient Assessed, Agree with Above Assessment and Plan
[2018-11-25] MEDS: Meropenem 500 MG in NA CHLORIDE 0.9% 100 ML IV SCH ×2 (11:12→17:49)
[2018-11-25] MEDS: SOD CHLORIDE 0.65% NASAL SPRAY NAS SCH ×3 (13:34→21:54)
[2018-11-25] MEDS: MAGNESIUM HYDROXIDE 8% 30 ML PO PRN (15:46)
--- NOTE | 2018-11-25 16:43 | PN ---
Date of Progress Note: 11/25/2018 Subjective: The patient is seen and examined. Chart reviewed and case discussed with RN and Dr. Therese huffman. The patient states that he still has significant amount of swelling, however, slightly improv ed. Continues to have hemoptysis. Not really moving around well. Medications: List reviewed. Physical Examination: Vital Signs: Temperature 97.5, heart rate 60, blood pressure 99/59, respirations 20, O2 of 96% on ro om air. General: Awake, alert, oriented x3, in some mild distress. Elderly male, ill-appearing, obese. CV: S1 and S2. Peripheral pulses present. Regular rate and rhythm. Respiratory: Diminished breath sounds, worse on the left. Some crackles heard. Gastrointestinal: Abdomen is soft. Mild distention. No guarding or rigidity. No tenderness. Posi tive bowel sounds. Extremities: No clubbing, cyanosis. The patient does have peripheral edema bilaterally. Neurologic: Nonfocal. Laboratory Data: Sodium 143, potassium 3.6, chloride 109, CO2 25, BUN 39, creatinine 1.63, glucose 9 5, calcium 7.8, phosphorus 2.6, total bilirubin 2.1, AST 77, ALT 157, albumin 2.5. WBC 7.5; H and H 7.6 and 21.8, on repeat 11.6 and 34.7; platelets 130. Blood cultures no growth to date. Assessment: An 88-year-old male with: 1.Ventricular tachycardia, status post cardioversion. No further episodes. The patient has a pacem finn. We will continue amiodarone. 2.Shock liver. Liver function enzymes trending down, improving, secondary to hypotension. 3.Acute systolic heart failure. We will continue diuresis. The patient does have diffuse anasarca. 4.Left-sided moderate pleural effusion, loculated. We will continue diuretics. Monitor daily weigh ts. 5.Acute on chronic kidney injury, stage III. Creatinine improved. We will continue to monitor. IV fluids have been discontinued due to anasarca. 6.Severe protein-calorie malnutrition. Albumin is improving. 7.Coronary artery disease, [place] artery and [place] heart, status post coronary artery bypass grafti ng without angina. 8.Hypotension. We will continue midodrine. Blood pressure is stable. We will hold off on IV fluid s due to pleural effusion and anasarca. 9.Mixed hyperlipidemia. Continue statin. 10.Hemoptysis. CT chest is negative. Consider ENT evaluation. Plavix and heparin are on hold. 11.Gastrointestinal and deep venous thrombosis prophylaxis with SCDs. No chemical anticoagulation d ue to hemoptysis. Plan: Continue antibiotics. Appreciate Dr. Gramajo's input. No ENT available today. We will appr [facility] Dr. Stevens for possible consultation on Monday. We will continue to monitor H and H. It appea rs that this morning's lab draw may have been an error because repeat H and H was around his baseline at around 11. Overall guarded prognosis. The patient will likely benefit from SNF or LTAC. The pa tient will need long-term IV antibiotics, may need PICC line. /SOFIA Voice ID: [id number] Report ID: [id number]
[2018-11-25] MEDS ORDERED: Meropenem 500 MG VIAL IV SCH (17:00)
[2018-11-25] MEDS: ATORVASTATIN 40 MG TAB PO SCH (20:56)
[2018-11-26] MEDS: ALBUMIN HUMAN 25% 100 ML IV SCH ×3 (00:02→16:57)
[2018-11-26] MEDS: FUROSEMIDE 40 MG/4 ML VIAL IV SCH ×3 (00:06→16:57)
[2018-11-26] MEDS: Meropenem 500 MG in NA CHLORIDE 0.9% 100 ML IV SCH ×3 (00:20→16:56)
--- NOTE | 2018-11-26 02:16 | PN ---
Date of Progress Note: 11/25/2018 Chief Complaint: Acute kidney injury on chronic kidney disease. Acute kidney injury is nonoliguric, moderately severe, associated with renal hypoperfusion in setting of hypotension. The patient was found to have severe fluid overload , anasarca. Primarily, he was started on IV fluids for hypotension. Subsequently, blood pressure stabilized on midodrine and patient was started on diuretics. Peripheral edema somewhat improving. Review of Systems: The patient denies PND or orthopnea. Physical Examination: Lungs: Coarse breath sounds bilaterally. Heart: S1, S2. Abdomen: Soft, benign. Extremities: Edema in upper and lower extremities. Lab Work: Hemoglobin 11.6 and hematocrit 34.7. Chemistry shows sodium 143, potassium 3.6, chloride 109, CO2 25, creatinine 1.63, glucose 95, calcium 7.8, phosphorus 2.6. Impression And Plan: Junzw-pd-solapns kidney injury. Renal function is somewhat improving. The patient has fluid overload. Continue diuretics, low- sodium diet. Monitor magnesium level, adjust replacement as needed. The patient had labs done and magnesium level was evaluated, it was 2.7. Continue loop diuretics. Hypotension. The patient will have midodrine for blood pressure support. Chest x-ray showed possible pneumonia. Continue antibiotics. The patient will have serology workup to rule out vasculitis and anti-GBM antibody. EB/MODL Voice ID: [id number] Report ID: [id number] MTDD
[2018-11-26] MEDS: GUAIFENESIN/DM 5 ML UCUP PO SCH ×6 (04:00→20:44)
[2018-11-26 05:09] LABS: Potassium 3.7 mmol/L (3.5-5.1)
[2018-11-26] MEDS ORDERED: POTASSIUM 25 MEQ EFFERV TAB PO ONE (06:00)
[2018-11-26] MEDS: DOCUSATE NA 100 MG CAP PO SCH ×2 (08:37→20:42)
[2018-11-26] MEDS: MIDODRINE HCL 5 MG TABLET PO SCH ×3 (08:38→20:43)
[2018-11-26] MEDS: AMIODARONE HCL 200 MG TAB PO SCH (08:38)
[2018-11-26] MEDS: GABAPENTIN 300 MG CAP PO SCH ×2 (08:39→20:42)
[2018-11-26] MEDS: SOD CHLORIDE 0.65% NASAL SPRAY NAS SCH ×4 (08:39→20:43)
[2018-11-26] MEDS ORDERED: POLYETHYL GLY 3350 17 GM/DOSE PO PRN (10:00)
[2018-11-26] MEDS ORDERED: MAGNESIUM CITRATE 300 ML BOT PO ONE (10:00)
[2018-11-26] MEDS: POLYETHYL GLY 3350 17 GM/DOSE PO SCH (10:32)
--- NOTE | 2018-11-26 10:51 | P.PN ---
Subjective Date of Service: 11/26/18 Chief Complaint: Hemoptysis Subjective: Improving (Patient is doing better hemoptysis is declining) Review of Systems General: Weakness Respiratory: Hemoptysis Cardiovascular: Edema Physical Examination - Vital Signs Temperature: 97.8 F Blood Pressure: 107/61 Pulse: 62 Respirations: 24 Pulse Ox (%): 93 - Physical Exam General: Alert, In no apparent distress, Oriented x3 Respiratory: Clear to auscultation bilaterally, Diminished Cardiovascular: Normal S1 S2, Edema Assessment & Plan - Problems (Diagnosis) (1) Hemoptysis Current Visit: Yes Status: Acute Plan: Patient is 88 years of age admitted with hemoptysis he has fairly extensive consolidation in the left lung with loculated pleural effusions most likely he has hemoptysis is from an infection I recommend 2 weeks of vancomycin and meropenem he is responding well vital signs stable denies any chest pain Physician Review: Patient Assessed, Agree with Above Assessment and Plan
[2018-11-26] MEDS ORDERED: FLEET ENEMA ADULT PR ONE (12:00)
[2018-11-26] MEDS: VANCOMYCIN 1.5 GM in NA CHLORIDE 0.9% 500 ML IVPB SCH (15:00)
--- NOTE | 2018-11-26 16:41 | PN ---
Date of Progress Note: 11/26/2018 Subjective: The patient is seen and examined. Chart reviewed and case discussed with RN. The patie nt still having some hemoptysis. Swelling has improved slightly. Also asking for some laxatives due to constipation. Medications: List reviewed. Physical Examination: Vital Signs: Temperature 97.8, heart rate 62 , blood pressure 107/61, respirations 24, O2 93% on smitha m air. General: Awake, alert, and oriented x3. Some mild distress. Elderly male, obese. CV: S1 and S2. Peripheral pulses present. Regular rate and rhythm. Respiratory: Moving air well bilaterally. Bilateral APCs. Decreased breath sounds at the bases, le ft worse than right. Gastrointestinal: Abdomen is soft, nontender, nondistended. Positive bowel sounds. Extremities: No clubbing or cyanosis. The patient does have peripheral edema. : The patient has significant scrotal edema. Neurologic: Nonfocal. Laboratory Data: Sodium 142, potassium 3.7, chloride 108, CO2 25, BUN 36, creatinine 1.6, glucose 95 , calcium 8.4, H and H are pending. Cultures negative. Assessment And Plan: An 88-year-old male with: 1.Ventricular tachycardia, status post cardioversion. No further recurrent episodes. The patient d oes have pacemaker. Continue amiodarone. 2.Shock liver. LFTs improving secondary to hypotension. 3.Acute systolic heart failure. Continue diuretics. The patient's daily weight trending down. The patient's volume status and balance still not quite negative. The patient still has some diffuse an asarca. 4.Left pleural effusion loculated, likely secondary to bacterial infection and heart failure. We wi ll continue diuretics. 5.Acute on chronic kidney injury stage III. Creatinine is improved. Continue to monitor. 6.Severe protein-calorie malnutrition. 7.Coronary artery disease [place] artery and [place] heart, status post coronary artery bypass graftin g without angina, stable. 8.Hypotension, improved with med routine. 9.Mixed hyperlipidemia. Continue statin. 10.Hemoptysis. We will reach out to ENT if environmental change analyst for evaluation. CT chest was nonrevealing, Plav ix and heparin on hold, however, still having hemoptysis. 11.Gastrointestinal and deep venous thrombosis prophylaxis with SCDs. No chemical anticoagulation d ue to hemoptysis. Plan: Obtain PICC line. The patient will need IV antibiotics for 2 weeks with vancomycin and merope nem. Possible ENT evaluation for hemoptysis. Overall, guarded prognosis. We will likely need [facility] r lizandro. /SOFIA Voice ID: [id number] Report ID: [id number]
[2018-11-26] MEDS: ONDANSETRON 4 MG/2 ML VIAL IV PRN (17:09)
[2018-11-26] MEDS: ATORVASTATIN 40 MG TAB PO SCH (20:42)
[2018-11-27] MEDS: GUAIFENESIN/DM 5 ML UCUP PO SCH ×3 (01:02→05:24)
[2018-11-27] MEDS: FUROSEMIDE 40 MG/4 ML VIAL IV SCH ×3 (01:03→17:57)
[2018-11-27] MEDS: ALBUMIN HUMAN 25% 100 ML IV SCH ×3 (01:03→16:50)
[2018-11-27] MEDS: Meropenem 500 MG in NA CHLORIDE 0.9% 100 ML IV SCH ×3 (01:05→16:50)
--- NOTE | 2018-11-27 01:26 | PN ---
Date of Progress Note: 11/26/2018 Chief Complaint: Acute on chronic kidney injury associated with anasarca, fluid overload. The patient is started on IV fluids primarily for hypotension. The patient was found to have pneumon ia, is started on antibiotics. IV fluids were stopped. The patient received midodrine to stabilize blood pressure and was started on diuretics to control severe fluid overload with anasarca. Review of Systems: Denies PND, orthopnea. Physical Examination: Lungs: Coarse breath sounds bilaterally. Heart: S1-S2. Abdomen: Soft, benign. Extremities: Edema in upper and lower extremities. Laboratory Data: Phosphorus 2.6, creatinine 1.63, potassium 3.4, hemoglobin 11.6. Impression And Plan: 1.Acute on chronic kidney injury. Renal function is gradually improving. Monitor fluid balance and check the urine output daily. Monitor phosphorus level, adjust replacement as needed. 2.Hypotension. Continue midodrine for blood pressure support. 3.Pneumonia. Continue antibiotics. Serology tests were sent for vasculitis and anti-GBM antibodies . ANCA test was ordered and pending. Anti-GBM test is pending. JOHNNY/MODL Voice ID: [id number] Report ID: [id number]
[2018-11-27 04:52] LABS: Absolute Lymphocytes (CBC) 0.8 K/uL (0.7-4.9); Absolute Monocytes 0.6 K/uL (0.1-1.3); Absolute Neutrophil 4.9 K/uL (1.8-8.0); Basophils % 0.7 % (0-1.3); Eosinophils % 1.3 % (0-4.4); Hematocrit 33.8 % (39.6-49.0); Lymphocytes % 11.9 % (15.3-44.8); MPV 9.5 fL (7.6-11.3); Monocytes % 9.3 % (3.3-12.3); RBC Red Blood Cell Count 3.62 M/uL (4.33-5.43)
[2018-11-27 05:03] LABS: Albumin 3.1 g/dL (3.4-5.0); Bilirubin Total 2.3 mg/dL (0.2-1.0); Potassium 3.8 mmol/L (3.5-5.1)
[2018-11-27] MEDS: VANCOMYCIN 1.5 GM in NA CHLORIDE 0.9% 500 ML IVPB SCH (05:24)
[2018-11-27] MEDS ORDERED: GUAIFENESIN/DM 5 ML UCUP PO PRN (05:47)
[2018-11-27] MEDS ORDERED: POTASSIUM 25 MEQ EFFERV TAB PO ONE (09:00)
[2018-11-27] MEDS: SOD CHLORIDE 0.65% NASAL SPRAY NAS SCH ×3 (10:17→16:50)
[2018-11-27] MEDS: MIDODRINE HCL 5 MG TABLET PO SCH ×3 (10:18→23:12)
[2018-11-27] MEDS: AMIODARONE HCL 200 MG TAB PO SCH (10:18)
[2018-11-27] MEDS: GABAPENTIN 300 MG CAP PO SCH ×2 (10:18→23:12)
[2018-11-27] MEDS: POLYETHYL GLY 3350 17 GM/DOSE PO SCH (10:18)
[2018-11-27] MEDS: DOCUSATE NA 100 MG CAP PO SCH ×2 (10:19→23:12)
--- NOTE | 2018-11-27 11:21 | RAD REPORT ---
EXAM DESCRIPTION: RAD - Chest Single View - 11/27/2018 10:43 am CLINICAL HISTORY: PICC line placement COMPARISON: November 22, 2018 FINDINGS: Portable chest was obtained following placement of a right upper extremity PICC line. The catheter tip is in the distal SVC. Left base pleural and parenchymal opacification not clearly different.
[2018-11-27 16:27] LABS: P-ANCA Anti-Myeloperoxidase Ab <1.0 AI (<1.0)
--- NOTE | 2018-11-27 16:30 | P.PN ---
Subjective Date of Service: 11/27/18 Chief Complaint: Hemoptysis Subjective: No new changes, No C/O voiced, Tolerating diet, Improving Patient seen and examined at bedside. Son at bedside. Chart reviewed and case discussed with nursing staff. Per patient, had a great night. He feels rested, swelling has improved this morning. Review of Systems 10-point ROS is otherwise unremarkable Physical Examination - Vital Signs Temperature: 97.2 F Blood Pressure: 118/61 Pulse: 61 Respirations: 20 Pulse Ox (%): 97 - Physical Exam General: Alert, In no apparent distress, Oriented x3 HEENT: Atraumatic, PERRLA, EOMI Neck: Supple, JVD not distended Respiratory: Clear to auscultation bilaterally, Normal air movement Cardiovascular: Regular rate/rhythm, Normal S1 S2, Edema Gastrointestinal: Normal bowel sounds, No tenderness Musculoskeletal: No tenderness Integumentary: No rashes Neurological: Normal speech, Normal tone, Normal affect Lymphatics: No axilla or inguinal lymphadenopathy - Studies Sodium 145, potassium 3.8, chloride 108, CO2 29, BUN 36, creatinine 1.57, glucose 99 WBC count 6.4, H&H 11.5 and 33.8 Imagings Data: RAD - Chest Single View - 11/27/2018 10:43 am CLINICAL HISTORY: PICC line placement COMPARISON: November 22, 2018 FINDINGS: Portable chest was obtained following placement of a right upper extremity PICC line. The catheter tip is in the distal SVC. Left base pleural and parenchymal opacification not clearly different. Medications List Reviewed: Yes Assessment And Plan - Plan This is an 80-year-old male with: Ventricular tachycardia, status post cardioversion History of pacemaker No further recurrent episodes. Pacemaker working well. Continue current amiodarone. Coronary artery disease with CABG Stable Hypotension Improved. Continue to monitor Acute systolic heart failure Continue diuretics Improved swelling and daily weights trending down Hyperlipidemia Continue statin Guillain-[place] syndrome Elevated creatinine, likely secondary to ventricular tachycardia and cardioversion Troponin trending down Left pleural effusion, loculated, likely secondary to bacterial infection and heart failure Patient now as PICC line placed, he will need IV antibiotics for 2 weeks at least. Acute kidney injury on underlying chronic kidney disease, stage 3 Creatine stable, monitor. Likely 2/2 shock. Elevated LFTs likely 2/2 shock Improved Hemoptysis Improved, almost resolved this morning. Continue to monitor. Hold Plavix and heparin at this time. DVT prophylaxis: On hold due to hemoptysis. Continue SCDs GI prophylaxis: Not needed Diet: Heart healthy Disposition: Overall, poor/guarded prognosis. Will need to nursing home facility, social work on board. Continue monitoring, pending symptomatic improvement. Physician Review: Patient Assessed, Agree with Above Assessment and Plan Time Spent Managing PTS Care (In Minutes): 45
--- NOTE | 2018-11-27 21:38 | PN ---
Date of Progress Note: 11/27/2018 Chief Complaint: Acute on chronic kidney injury secondary to prerenal azotemia , nonoliguric ATN in setting of chronic kidney disease associated with anasarca. The patient is treated with antibiotics for pneumonia. Hypotension was controlled with midodrine. Blood pressure improved. Renal function gradually is improving. The patient is on Lasix for anasarca fluid overload. Review of Systems: Denies new complaints. He is complaining of fatigue and cough. Physical Examination: Lungs: Few crackles at bases. Heart: S1, S2. Abdomen: Soft, benign. Extremities: Edema in upper and lower extremities. Laboratory Data: Creatinine 1.6, phosphorus 2.6, potassium 3.4, hemoglobin 11.6. Impression And Plan: 1. Acute on chronic kidney injury. Renal function is gradually improving. Continue diuretics for volemia control to prevent fluid overload. The patient has anasarca and fluid control is adequate with current dose of Lasix. Monitor fluid balance. 2. Hypotension. Blood pressure is improving. Continue midodrine. 3. Pneumonia. The patient will have vasculitis panel check. ANCA test is pending. Anti-GBM is pending. JOHNNY/MODL Voice ID: [id number] Report ID: [id number] BEN
[2018-11-27] MEDS: ATORVASTATIN 40 MG TAB PO SCH (23:11)
[2018-11-28] MEDS: SOD CHLORIDE 0.65% NASAL SPRAY NAS SCH ×5 (00:56→21:00)
[2018-11-28] MEDS: ALBUMIN HUMAN 25% 100 ML IV SCH ×3 (00:57→17:32)
[2018-11-28] MEDS: Meropenem 500 MG in NA CHLORIDE 0.9% 100 ML IV SCH ×3 (01:02→17:38)
[2018-11-28] MEDS: FUROSEMIDE 40 MG/4 ML VIAL IV SCH ×3 (01:04→17:37)
[2018-11-28 07:08] LABS: Absolute Monocytes 0.8 K/uL (0.1-1.3); Basophils % 1.1 % (0-1.3); Eosinophils % 1.2 % (0-4.4); Hematocrit 36.1 % (39.6-49.0); MPV 10.1 fL (7.6-11.3); Monocytes % 10.4 % (3.3-12.3); RBC Red Blood Cell Count 3.82 M/uL (4.33-5.43)
[2018-11-28 07:27] LABS: Albumin 3.3 g/dL (3.4-5.0); Potassium 4.2 mmol/L (3.5-5.1); Protein, Total 6.4 g/dL (6.4-8.2)
[2018-11-28] MEDS: POLYETHYL GLY 3350 17 GM/DOSE PO SCH (10:24)
[2018-11-28] MEDS: AMIODARONE HCL 200 MG TAB PO SCH (10:24)
[2018-11-28] MEDS: DOCUSATE NA 100 MG CAP PO SCH ×2 (10:25→21:07)
[2018-11-28] MEDS: GABAPENTIN 300 MG CAP PO SCH ×2 (10:25→21:07)
--- NOTE | 2018-11-28 10:56 | RAD REPORT ---
EXAM DESCRIPTION: US - Urinary Bladder - 11/28/2018 10:50 am CLINICAL HISTORY: check pvr and notify dr hensley Pelvic pain, urinary retention COMPARISON: Liver Only dated 01/04/2017 TECHNIQUE: Real-time sonographic evaluation of the urinary bladder with pre and postvoid volume tobin urements was performed. FINDINGS: Neither kidney was well visualized. The patient voided prior to the sonogram. Urinary bladder is partially decompressed with PVR of 21 mL . Prostate gland projects into bladder base. No suspicion for bladder mass or ureterocele. IMPRESSION: PVR measures 21 mL.
[2018-11-28] MEDS: MIDODRINE HCL 5 MG TABLET PO SCH ×3 (11:33→21:07)
--- NOTE | 2018-11-28 17:06 | P.PN ---
Subjective Date of Service: 11/28/18 Chief Complaint: Hemoptysis Subjective: No new changes, No C/O voiced, Tolerating diet, Ambulating, Improving, Working w/ PT Patient seen and examined at bedside. Son at bedside. Chart reviewed and case discussed with nursing staff. Per patient, had a great night. He feels rested, swelling has improved this morning. Review of Systems 10-point ROS is otherwise unremarkable Physical Examination - Vital Signs Temperature: 96.9 F Blood Pressure: 116/67 Pulse: 62 Respirations: 22 Pulse Ox (%): 96 - Physical Exam General: Alert, In no apparent distress, Oriented x3 HEENT: Atraumatic, PERRLA, EOMI Neck: Supple, JVD not distended Respiratory: Clear to auscultation bilaterally, Normal air movement Cardiovascular: Regular rate/rhythm, Normal S1 S2 Gastrointestinal: Normal bowel sounds, No tenderness Musculoskeletal: No tenderness Integumentary: No rashes Neurological: Normal speech, Normal tone, Normal affect Lymphatics: No axilla or inguinal lymphadenopathy - Studies Medications List Reviewed: Yes Assessment And Plan - Plan This is an 80-year-old male with: Ventricular tachycardia, status post cardioversion History of pacemaker No further recurrent episodes. Pacemaker working well. Continue current amiodarone. Coronary artery disease with CABG Stable Hypotension Improved. 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 Acute kidney injury on underlying chronic kidney disease, stage 3 Creatine stable, monitor. Likely 2/2 shock. Elevated LFTs likely 2/2 shock Improved Hemoptysis Improved, almost resolved this morning. Continue to monitor. Hold Plavix and heparin at this time. DVT prophylaxis: On hold due to hemoptysis. Continue SCDs GI prophylaxis: Not needed Diet: Heart healthy Disposition: Overall, poor/guarded prognosis. Will need to [facility], social work on board. Continue monitoring, pending symptomatic improvement. Physician Review: Patient Assessed, Agree with Above Assessment and Plan
--- NOTE | 2018-11-28 20:20 | P.PN ---
Subjective Date of Service: 11/28/18 Chief Complaint: Hemoptysis Subjective: Improving Pt admitted with chest pain and VT was hypotensive, devloped MORALES likely due to ischemic ATN Cr improving on lasix due to anasarca Physical Examination - Vital Signs Temperature: 96.9 F Blood Pressure: 116/67 Pulse: 62 Respirations: 22 Pulse Ox (%): 96 - Physical Exam General: Oriented x3 HEENT: Atraumatic Neck: Supple, Without JVD or thyroid abnormality Respiratory: Clear to auscultation bilaterally Cardiovascular: Regular rate/rhythm, Normal S1 S2, No rubs, No murmurs, Edema Gastrointestinal: Normal bowel sounds - Studies Medications List Reviewed: Yes Assessment And Plan - Current Problems (Diagnosis) (1) MORALES (acute kidney injury) Current Visit: Yes Status: Acute (2) Ventricular tachycardia Onset Date: 11/18/18 Current Visit: Yes Status: Acute (3) Shortness of breath Current Visit: No Status: Acute (4) Atrial fibrillation Onset Date: 01/04/17 Current Visit: No Status: Chronic Qualifiers: Atrial fibrillation type: chronic Qualified Code(s): I48.2 - Chronic atrial fibrillation (5) Essential hypertension Onset Date: 01/04/17 Current Visit: No Status: Chronic (6) History of pacemaker Current Visit: No Status: Chronic - Plan An 80-year-old man with history of CAD S?p CABG, CHF S/p AICD , HLD , 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 pt SBP at baseline 90-100, pt devlope VT required cardioversion, SBP dropped to 60s, cr at baseline 1.2-1.4 and levated to 2.2 with elevated LFT pt started on pressers but devloped VT again now on IVF SBP improved and also LFT improved no chest pain, palpaitaion, nausea had bloody tinged sputum MORALES likely due to ischemic ATN cr 2.2 on admission and trending down to 1.6 US no hydro renal dose meds monitor vanco level now on lasix due to edema ANCA and anti-GBM -ve elevated LFT likely due to shoceked liver imporving Hypotension on midodrine VT resolved PNA on Vancomycin Monitor Level Physician Review: Patient Assessed, Agree with Above Assessment and Plan
[2018-11-28 20:52] VITALS: O2SAT 94
[2018-11-28] MEDS: ATORVASTATIN 40 MG TAB PO SCH (21:07)
[2018-11-28] MEDS ORDERED: TRAZODONE 50 MG TABLET PO PRN (22:19)
[2018-11-29] MEDS: ALBUMIN HUMAN 25% 100 ML IV SCH ×2 (00:12→09:22)
[2018-11-29] MEDS: Meropenem 500 MG in NA CHLORIDE 0.9% 100 ML IV SCH ×2 (00:50→09:25)
[2018-11-29] MEDS: FUROSEMIDE 40 MG/4 ML VIAL IV SCH ×2 (00:50→09:23)
[2018-11-29] MEDS: SOD CHLORIDE 0.65% NASAL SPRAY NAS SCH ×2 (09:00→13:00)
[2018-11-29] MEDS: POLYETHYL GLY 3350 17 GM/DOSE PO SCH (09:22)
[2018-11-29] MEDS: DOCUSATE NA 100 MG CAP PO SCH (09:23)
[2018-11-29] MEDS: GABAPENTIN 300 MG CAP PO SCH (09:23)
[2018-11-29] MEDS: AMIODARONE HCL 200 MG TAB PO SCH (09:24)
[2018-11-29] MEDS: MIDODRINE HCL 5 MG TABLET PO SCH ×2 (09:25→13:49)
[2018-11-29] MEDS: VANCOMYCIN 1.5 GM in NA CHLORIDE 0.9% 500 ML IVPB SCH (11:36)
--- NOTE | 2018-11-29 11:49 | P.PN ---
Subjective Date of Service: 11/29/18 Chief Complaint: Hemoptysis Subjective: Improving Pt admitted with chest pain and VT was hypotensive, developed MORALES likely due to isthmic ATN Cr improving on lasix due to anasarca Vanco level 18 lt sided rales Physical Examination - Vital Signs Temperature: 97 F Blood Pressure: 107/68 Pulse: 60 Respirations: 20 Pulse Ox (%): 94 - Physical Exam General: In no apparent distress, Oriented x3 Neck: Supple, Without JVD or thyroid abnormality Respiratory: Crackles/rales Cardiovascular: Regular rate/rhythm, Normal S1 S2, Abnormal S3, Edema (trace edema ) Gastrointestinal: Normal bowel sounds - Studies Medications List Reviewed: Yes Assessment And Plan - Current Problems (Diagnosis) (1) MORALES (acute kidney injury) Current Visit: Yes Status: Acute (2) Ventricular tachycardia Onset Date: 11/18/18 Current Visit: Yes Status: Acute (3) Shortness of breath Current Visit: No Status: Acute (4) Atrial fibrillation Onset Date: 01/04/17 Current Visit: No Status: Chronic Qualifiers: Atrial fibrillation type: chronic Qualified Code(s): I48.2 - Chronic atrial fibrillation (5) Essential hypertension Onset Date: 01/04/17 Current Visit: No Status: Chronic (6) History of pacemaker Current Visit: No Status: Chronic - Plan An 80-year-old man with history of CAD S?p CABG, CHF S/p AICD , HLD , 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 pt SBP at baseline 90-100, pt devlope VT required cardioversion, SBP dropped to 60s, cr at baseline 1.2-1.4 and levated to 2.2 with elevated LFT pt started on pressers but devloped VT again now on IVF SBP improved and also LFT improved no chest pain, palpaitaion, nausea had bloody tinged sputum MORALES likely due to ischemic ATN cr 2.2 on admission and trending down to 1.6 US no hydro renal dose meds monitor vanco level now on lasix due to edema ANCA and anti-GBM -ve elevated LFT likely due to shocked liver improving Hypotension on midodrine VT resolved PNA on Vancomycin Monitor Level Physician Review: Patient Assessed, Agree with Above Assessment and Plan
[2018-11-29 13:29] VITALS: BP 100/64; TEMP 96.9
[2018-11-29] MEDS: MAGNESIUM HYDROXIDE 8% 30 ML PO PRN (13:49)
--- NOTE | 2018-11-29 14:46 | CON ---
History Of Present Illness: This is an 88-year-old gentleman who was admitted with a history of coronary artery disease, pacemaker, and defibrillator. He was admitted with V-tach. He had a Mendoza catheter placed that was removed yesterday. He has some scrotal improving benign edema, penile swelling and just generalized edema. He has to void in a diaper. His main complaint is that he is unable to use the urinal due to mild swelling he has on the penis and on the scrotum and request that the catheter be replaced. My personal preference is to get rid of the Mendoza catheter and have him void in the urinal if possible. This will reduce the risk of nosocomial infection and possible Mendoza trauma. Allergies: TO ALLOPURINOL, CEPHALEXIN, LOVENOX, AND SPIRONOLACTONE. Home Medications: Plavix, Neurontin, nitroglycerin, sacubitril/valsartan, isosorbide mononitrate, amiodarone, aspirin, Lipitor, Lasix, and mag oxide. Past Medical/surgical History: Pacemaker, defibrillator, hypertension, CHF, GERD, [place], Guillain-[place] ___, tuberculosis in the 60s, hyperlipidemia, cardioversion, AFib 2 years ago, coronary artery disease, BPH, pacemaker, CABG, heart stent x1, appendectomy, and wedge resection of left lung. Family History: Father had heart disease. Mother had stroke. Brother had cancer. Sister had cancer. Social History: Former smoker. No alcohol use. No drug use. Some caffeine use. Resides at home. Review of Systems: Ten-point review of systems. General: He has some weakness. HEENT: Unremarkable. Respiratory: Some shortness of breath. Cardiovascular: Has history of palpitations, has pacemaker __. Skin: No rashes. Neurologic: Alert and oriented. Lymphatics: normal. Physical Examination: General: alert, no apparent distress, oriented x3. HEENT: Atraumatic and normocephalic. Neck: Supple. Respiratory: Clear. Cardiovascular: S1 and S2. Gastrointestinal: Normal bowel sounds. Musculoskeletal: No tenderness. Skin: No rashes. Neurologic: Alert and oriented, gait intact. Lymphatics: No lymphadenopathy. Laboratory Study: Shows white count 8.0, H and H are 12 and 36, platelet count _chemistries: Sodium _ BUN 39, creatinine 1.66, GFR _ Assessment: The patient with mild scrotal swelling and penile swelling from generalized swelling. I recommend conservative scrotal elevation, penile elevation. As far as his urinary symptoms are concerned, he has been trying to use the urinal versus the diaper. We will try to avoid a catheter if possible. We can also check a postvoid by ultrasound to make sure he is emptying his bladder well and to rule out urinary retention that maybe going on since he had his catheter removed in the last 24 hours. ROSETTA/SOFIA Voice ID: [id number] Report ID: [id number] MTDD
== END 2018-11-29 14:32 | DRG 871 ==
LOC: ER 07:28 → ERHOLD 09:00 → 3RD-ICU 10:18 → 4TH 11-21 12:35
PROVIDERS: ADMIT Family Medicine; ATTEND Family Medicine
PROC: 5A2204Z Restoration of Cardiac Rhythm, Single (ICD-10-PCS; principal; 2018-11-16)
PROC: 02HV33Z Insertion of Infusion Device into Superior Vena Cava, Percutaneous Approach (ICD-10-PCS; 2018-11-27)
DX: A41.9 Sepsis, unspecified organism (principal); J18.9 Pneumonia, unspecified organism; R65.21 Severe sepsis with septic shock; K72.00 Acute and subacute hepatic failure without coma; N17.0 Acute kidney failure with tubular necrosis; I50.23 Acute on chronic systolic (congestive) heart failure; E43 Unspecified severe protein-calorie malnutrition; I47.2 Ventricular tachycardia; G61.0 Guillain-Barre syndrome; I13.0 Hypertensive heart and chronic kidney disease with heart failure and stage 1 through stage 4 chronic kidney disease, or unspecified chronic kidney disease; R04.2 Hemoptysis; Z88.8 Allergy status to other drugs, medicaments and biological substances; I25.10 Atherosclerotic heart disease of native coronary artery without angina pectoris; Z95.810 Presence of automatic (implantable) cardiac defibrillator; I95.9 Hypotension, unspecified; K21.9 Gastro-esophageal reflux disease without esophagitis; I25.2 Old myocardial infarction; N40.0 Benign prostatic hyperplasia without lower urinary tract symptoms; Z95.5 Presence of coronary angioplasty implant and graft; Z95.1 Presence of aortocoronary bypass graft; Z87.891 Personal history of nicotine dependence; I25.5 Ischemic cardiomyopathy; N18.2 Chronic kidney disease, stage 2 (mild); G62.9 Polyneuropathy, unspecified; M10.9 Gout, unspecified; Z66 Do not resuscitate; I48.2 Chronic atrial fibrillation; Z79.01 Long term (current) use of anticoagulants; E78.2 Mixed hyperlipidemia; N50.89 Other specified disorders of the male genital organs; Z68.31 Body mass index [BMI] 31.0-31.9, adult; D72.828 Other elevated white blood cell count; Z86.11 Personal history of tuberculosis
CPT/HCPCS: 36415; 71045; 71046; 71250; 76700; 76857; 80048; 80053; 80076; 80202; 81001; 81003; 81015; 82570; 82962; 83520; 83605; 83735; 83880; 84100; 84145; 84156; 84300; 84439; 84443; 84481; 84484; 85014; 85018; 85025; 85610; 86021; 87040; 87070; 87077; 87086; 87088; 87186; 87205; 92960; 93005; 93306; 93971; 97116; 97163; 97530; 99291; J0282; J1265; J1644; J1940; J2405; J2543; J3010; J7030; J7060; P9047

== ENCOUNTER 2018-12-01 17:35 | Emergency (ER) | payer OTHER ==
[2018-12-01] MEDS ORDERED: DOPAMINE/D5W 400 MG/250 ML BAG IV ONE (17:36)
[2018-12-01] MEDS ORDERED: Caclcium Chloride 10% INJ SYR IV ONE (17:36)
[2018-12-01] MEDS ORDERED: EPINEPHrine 1 MG/10 ML SYR IV ONE (17:36)
--- NOTE | 2018-12-01 18:01 | EDPHYS ---
Physician Documentation [facility] Name: Masood Liu Age: 88 yrs Sex: Male : 1930 Arrival Date: 12/01/2018 Time: 17:35 Bed 3 Private MD: ED Physician James Franco HPI: 12/01 17:50 This 88 yrs old Male presents to ER via Unassigned with complaints of CPR. magnolia 17:50 Preceding the arrest, the patient collapsed, had chest pain, was dyspneic. The arrest magnolia occurred at half-way. Pre-hospital course: The arrest was witnessed. The patient has not experienced similar symptoms in the past. Historical: - Allergies: 19:56 Aldactone; bp 19:56 Allopurinol; bp 19:56 Keflex; bp 19:56 Lovenox; bp - PMHx: 19:56 Atrial Fib; BPH; CAD; CHF; GERD; Hypertension; neuropathy; bp - Family history:: not pertinent. ROS: 17:53 Unable to obtain ROS due to cpr. magnolia Exam: 17:51 Head/face: Noted is cyanosis. magnolia 17:51 Eyes: Pupils: are fixed and dilated. 17:51 Neck: External neck: positive jvd. 17:51 Cardiovascular: Rate: actual rate is 0 bpm, Rhythm: pea, Pulses: not palpable, Heart sounds: none, Edema: is not appreciated, JVD: is noted bilaterally, to 3 cm. 17:51 Respiratory: intubated lpta. 17:51 Abdomen/GI: Inspection: distension, Bowel sounds: absent, Palpation: abdomen is soft and non-tender, Liver: no appreciated palpable abnormalities. Vital Signs: 17:42 BP 112 / 77; Pulse 97; Resp 36; Temp 97; Pulse Ox 97% ; Weight 113.4 kg; Height 6 ft. 1 bp in. (185.42 cm); 17:45 BP 120 / 80; Pulse 103; Resp 33; Pulse Ox 97% ; bp 17:51 BP 110 / 80; Pulse 106; Resp 31; Pulse Ox 95% ; bp 18:00 BP 101 / 72; Pulse 79; Resp 23; Pulse Ox 91% ; bp 18:12 BP 110 / 70; Pulse 72; Resp 27; Pulse Ox 80% ; bp 18:24 BP 89 / 55; Pulse 69; Resp 28; Pulse Ox 76% ; bp 18:30 BP 47 / 20; Pulse 61; Resp 8; Pulse Ox 51% ; bp 19:00 Pulse 0; Resp 0; bp 17:42 Body Mass Index 32.98 (113.40 kg, 185.42 cm) bp MDM: 17:47 Patient medically screened. [facility] 17:56 Data reviewed: vital signs, nurses notes, lab test result(s), EKG, radiologic studies, [facility] CT scan, plain films. 12/01 17:50 Order name: Basic Metabolic Panel [facility] 12/01 17:50 Order name: CBC with Diff [facility] 12/01 17:50 Order name: LFT's [facility] 12/01 17:50 Order name: Magnesium [facility] 12/01 17:50 Order name: NT PRO-BNP [facility] 12/01 17:50 Order name: PT-INR [facility] 12/01 17:50 Order name: Troponin (emerg Dept Use Only) [facility] 12/01 17:50 Order name: Lipase [facility] 12/01 17:50 Order name: ABG [facility] 12/01 17:50 Order name: Lactate [facility] 12/01 17:50 Order name: Procalcitonin [facility] 12/01 19:09 Order name: Manual Differential EDMO 12/01 17:50 Order name: XRAY Chest (1 view) [facility] 12/01 17:50 Order name: EKG; Complete Time: 17:51 [facility] 12/01 17:50 Order name: Cardiac monitoring; Complete Time: 18:09 [facility] 12/01 17:50 Order name: EKG - Nurse/Tech; Complete Time: 18:09 [facility] 12/01 17:50 Order name: IV Saline Lock; Complete Time: 18:09 [facility] 12/01 17:50 Order name: Labs collected and sent; Complete Time: 18:09 [facility] 12/01 17:50 Order name: O2 Per Protocol; Complete Time: 18:09 [facility] 12/01 17:50 Order name: O2 Sat Monitoring; Complete Time: 18:09 [facility] 12/01 17:50 Order name: Mendoza; Complete Time: 18:09 [facility] Administered Medications: 17:55 Drug: NS 0.9% 1000 ml Route: IV; Rate: 1 bolus; Site: right upper arm; iw 19:00 Follow up: IV Status: Completed infusion; IV Intake: 1000ml bp 18:30 Drug: Cefepime 2 grams Route: IVPB; Rate: 200 ml/hr; Infused Over: 30 mins; Site: PICC; bp 19:00 Follow up: IV Status: Completed infusion; IV Intake: 100ml bp 18:30 Drug: Versed 4 mg Route: IVP; Site: PICC; bp 19:08 Follow up: Response: No adverse reaction bp 19:06 Not Given (Patient ): vancoMYCIN 1 grams IVPB once over 2 hrs bp 19:06 Not Given (Patient ): Propofol 5 mcg/kg/min IV at calculated rate continuous; bp titrate per protocol (titrate by 5-10mcg/kg/min every 10 min to max rate of 50 mcg/kg/min) 19:07 Not Given (Patient ): NS 0.9% 1000 ml IV at 125 ml/hr continuous bp Disposition: Patient pronounced on 12/01/18 19:00 by James Franco. Impression: Cardiac arrest, Respiratory arrest. - Released to Home. Signatures: Dispatcher [employer] EDJames Jeffery MD MD cha Williams, Irene, RN RN iw Antunez, Elena, RN RN ea Peltier, Brian RN RN bp Corrections: (The following items were deleted from the chart) 19:01 18:00 Hospitalization Ordered by Dulce Pollard MD for Inpatient Admission. Preliminary magnolia diagnosis is Cardiac arrest; Respiratory arrest - sp cpr, successful. Bed requested for Intensive Care Unit. Status is Inpatient Admission. Condition is Critical. Problem is new. Symptoms are unchanged. UTI on Admission? No. magnolia 19:07 18:26 Restrain Patient ordered. magnolia bp 19:09 18:15 CBC Smear Scan ordered. EDMO EDMS 19:22 17:51 Head C Spine Cap Wo Con+CT.RAD.LUCIA ordered. EDMO EDMS 21:10 19:02 12/01/2018 19:02 Patient pronounced on 12/01/2018 at 19:00 by James Franco. arias Impression: Cardiac arrest; Respiratory arrest. Released to Home. magnolia
[2018-12-01 18:07] LABS: Absolute Lymphocytes (CBC) 4.6 K/uL (0.7-4.9); Absolute Monocytes 0.4 K/uL (0.1-1.3); Absolute Neutrophil 8.6 K/uL (1.8-8.0); Basophils % 1.4 % (0-1.3); Eosinophils % 0.9 % (0-4.4); Hematocrit 30.5 % (39.6-49.0); Lymphocytes % 32.9 % (15.3-44.8); Monocytes % 2.8 % (3.3-12.3); RBC Red Blood Cell Count 3.04 M/uL (4.33-5.43)
[2018-12-01 18:27] LABS: Albumin 2.2 g/dL (3.4-5.0); Bilirubin Direct 0.6 mg/dL (0-0.2); Bilirubin Total 0.9 mg/dL (0.2-1.0); Magnesium 2.8 mg/dL (1.8-2.4); Potassium 3.9 mmol/L (3.5-5.1); Protein, Total 4.6 g/dL (6.4-8.2); Troponin (Emerg Dept Use Only) 0.17 ng/mL (0.0-0.045)
[2018-12-01 18:29] LABS: Protime INR 2.04
[2018-12-01] MEDS ORDERED: MIDAZOLAM HCL 100 MG/NS 100 ML IV PRN ×2 (18:30)
[2018-12-01] MEDS ORDERED: NA CHLORIDE 0.9% 0 ML ONE (18:33)
[2018-12-01] MEDS ORDERED: CEFEPIME 2 GM VIAL ONE (18:33)
[2018-12-01] MEDS ORDERED: NA CHLORIDE 0.9% 0 ML IV ONE (18:33)
[2018-12-01] MEDS ORDERED: MIDAZOLAM HCL 2 MG/2 ML INJ ONE (18:36)
--- NOTE | 2018-12-01 19:02 | ER ---
Nurse's Notes [facility] Name: Masood Liu Age: 88 yrs Sex: Male : 1930 Arrival Date: 12/01/2018 Time: 17:35 Bed 3 Private MD: Diagnosis: Cardiac arrest;Respiratory arrest Presentation: 12/01 17:35 Presenting complaint: EMS states: CARDIOPULMONARY ARREST FROM [facility]. 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 CPR CONTINUED BY EMS, ETT PLACED. CPR CONTINUES ON ARRIVAL, SEE CODE SHEET. Care prior to arrival: Oral intubation, CPR via thumper and is still in progress IV initiated. R TIB IO Glucose check: 173 Oxygen administered. via AMBU bag. Compressions began prior to arrival. 17:35 Method Of Arrival: EMS: [facility] bp 18:00 Acuity: SHELLEY 1 iw Historical: - Allergies: 19:56 Aldactone; bp 19:56 Allopurinol; bp 19:56 Keflex; bp 19:56 Lovenox; bp - PMHx: 19:56 Atrial Fib; BPH; CAD; CHF; GERD; Hypertension; neuropathy; bp - Family history:: not pertinent. Screenin:35 Abuse screen: Denies threats or abuse. Denies injuries from another. Nutritional bp screening: No deficits noted. Tuberculosis screening: No symptoms or risk factors identified. Fall risk None identified. 17:35 Exposure risk/Travel Screening: None identified. bp Assessment: 17:35 CPR assessment: unresponsive, agonal respirations, intubated, Ambu ventilation, pale, bp pulses present w/ compressions. Cardiac rhythm is PEA. General: Appears distressed, comfortable, obese, Behavior is unresponsive. Neuro: Level of Consciousness is unresponsive. EENT: No deficits noted. Cardiovascular: Rhythm is PEA. Respiratory: Airway via oral intubation. GI: No deficits noted. : No deficits noted. Derm: No deficits noted. Musculoskeletal: No deficits noted. 17:43 Reassessment: ROSC. FAMILY AT B/S, INSTRUCTS PT IS A FULL DNR. PER MD, NO FURTHER bp HEROIC EFFORTS TO BE UNDERTAKEN AND ORDER PLACED ON CHART. 19:00 Reassessment: TIME OF . [facility] CONTACTED. [facility]IRI CONTACTED, AWAITING DECISION'. bp 20:35 Reassessment: VIRI and PD at bedside. ea Vital Signs: 17:42 BP 112 / 77; Pulse 97; Resp 36; Temp 97; Pulse Ox 97% ; Weight 113.4 kg; Height 6 ft. 1 bp in. (185.42 cm); 17:45 BP 120 / 80; Pulse 103; Resp 33; Pulse Ox 97% ; bp 17:51 BP 110 / 80; Pulse 106; Resp 31; Pulse Ox 95% ; bp 18:00 BP 101 / 72; Pulse 79; Resp 23; Pulse Ox 91% ; bp 18:12 BP 110 / 70; Pulse 72; Resp 27; Pulse Ox 80% ; bp 18:24 BP 89 / 55; Pulse 69; Resp 28; Pulse Ox 76% ; bp 18:30 BP 47 / 20; Pulse 61; Resp 8; Pulse Ox 51% ; bp 19:00 Pulse 0; Resp 0; bp 17:42 Body Mass Index 32.98 (113.40 kg, 185.42 cm) bp ED Course: 17:35 Patient arrived in ED. hj 17:35 Patient has correct armband on for positive identification. Bed in low position. Call bp light in reach. Side rails up X2. Accessed PICC line. Clean \T\ dry. Good blood return. Flushes easily. 17:47 James Franco MD is Attending Physician. magnolia 17:59 Dulce Pollard MD is Hospitalizing Provider. magnolia 18:01 XRAY Chest (1 view) In Process Unspecified. EDMS 18:08 Sean Washburn, RN is Primary Nurse. bp 18:23 Radiology exam delayed due to pt not stable to come over to Ct for scan, per NORA Estrada. kw1 18:46 Triage completed. iw 19:01 James Franco MD is Pronouncing Provider. magnolia 19:42 Judge Russell notified that pt has no PCP in area, Judge Russell en route to ER. iw Administered Medications: 17:55 Drug: NS 0.9% 1000 ml Route: IV; Rate: 1 bolus; Site: right upper arm; iw 19:00 Follow up: IV Status: Completed infusion; IV Intake: 1000ml bp 18:30 Drug: Cefepime 2 grams Route: IVPB; Rate: 200 ml/hr; Infused Over: 30 mins; Site: PICC; bp 19:00 Follow up: IV Status: Completed infusion; IV Intake: 100ml bp 18:30 Drug: Versed 4 mg Route: IVP; Site: PICC; bp 19:08 Follow up: Response: No adverse reaction bp 19:06 Not Given (Patient ): vancoMYCIN 1 grams IVPB once over 2 hrs bp 19:06 Not Given (Patient ): Propofol 5 mcg/kg/min IV at calculated rate continuous; bp titrate per protocol (titrate by 5-10mcg/kg/min every 10 min to max rate of 50 mcg/kg/min) 19:07 Not Given (Patient ): NS 0.9% 1000 ml IV at 125 ml/hr continuous bp Intake: 19:00 IV: 1000ml; Total: 1000ml. bp 19:00 IV: 100ml; Total: 1100ml. bp Outcome: 18:00 Decision to Hospitalize by Provider. magnolia 19:00 Outcome Patient bp 19:00 Patient : Time of 19:00 Pronounced by James Franco MD 19:00 Condition: 21:10 Patient left the ED. ea Signatures: Dispatcher [employer] James Donnelly MD MD cha Williams, Irene, RN Christopher Queen, RN Yuliet Victoria RN RN ea Peltier, Brian, RN Rubi Hickman1
[2018-12-01 19:06] LABS: Arterial Blood Carboxyhemoglob 0.8 % (0-1.5); Blood Gas Oxyhemoglobin 88.4 % (94-97); Blood O2 Saturation 89.9 % (92-98.5)
[2018-12-01 19:09] LABS: Platelet Estimate ADEQ
[2018-12-01 19:10] LABS: Anisocytosis 2+; Blood Morphology Comment NOTED (NOT SEEN); Burr Cells 2+; Ovalocytes 2+; Poikilocytosis 2+; Polychromasia 1+
--- NOTE | 2018-12-01 20:06 | RAD REPORT ---
EXAM DESCRIPTION: [facility] Single View12/01/2018 6:01 pm CLINICAL HISTORY: Chest pain COMPARISON: November 27, 2018 FINDINGS: An endotracheal tube has its tip 7 centimeters above the rani. PICC line is in place Postsurgical changes involve the chest. Pacemaker leads are in place. Left lower lobe consolidation is without obvious change. Small left pleural effusion is present. Mild right lung opacities have mildly worsened. Heart remains enlarged
[2018-12-01 21:15] VITALS: TEMP 97
[2018-12-01 21:23] VITALS: BP 47/20; O2SAT 51
--- NOTE | 2018-12-02 13:32 | EKG ---
Test Date: 2018-12-01 Test Time: 17:45:23 Acid Conditioning Worker: KENDRICK MEASUREMENT RESULTS: Intervals: Rate: 102 DE: QRSD: 166 QT: 410 QTc: 534 [place]: P: DE: QRS: 108 T: 250 INTERPRETIVE STATEMENTS: Wide QRS rhythm Right bundle branch block T wave abnormality, consider inferolateral ischemia Abnormal ECG Compared to ECG 11/18/2018 20:39:58 Uncertain supraventricular rhythm now present Right bundle-branch block now present T-wave abnormality now present Possible ischemia now present Ventricular-paced complex(es) or rhythm no longer present Left-axis deviation no longer present Electronically Signed On 12-02-18 13:21:52 FURNACE COMBINATION ANALYST by Dean Ferreira
== END 2018-12-01 21:10 | disposition expired ==
LOC: ER 17:35
DX: I46.9 Cardiac arrest, cause unspecified (principal); R09.2 Respiratory arrest; I10 Essential (primary) hypertension; Z88.1 Allergy status to other antibiotic agents; Z88.8 Allergy status to other drugs, medicaments and biological substances
CPT/HCPCS: 36415; 71045; 80048; 80076; 82805; 83605; 83690; 83735; 83880; 84145; 84484; 85025; 85610; 92950; 93005; 94002; 96361; 96365; 96375; 99291; J0171; J1265; J2250 ×2; J0692; J7030